=== PATIENT | female | born 1970 | race Caucasian/White ===

== ENCOUNTER → 2016-05-28 | Outpatient (REF) | payer OTHER | LOC: M LAB REF 16:21 | PROVIDERS: ATTEND Nurse Practitioner Family | DX: L81.8 Other specified disorders of pigmentation (principal) ==

== ENCOUNTER → 2018-08-23 | Outpatient (CLI) | payer BC, OTHER ==
--- NOTE | 2018-08-23 17:48 | REP ---
REASON: Chronic cough. PRIORS: None. FINDINGS: The superior mediastinal structures are midline. The cardiac silhouette is unremarkable in size, shape, and position. The diaphragmatic surfaces of the lungs are regular, and the costophrenic angles are clear. The pulmonary fontaine are clear. The imaged osseous structures are intact. IMPRESSION: There is no acute cardiopulmonary disease. Electronically Signed by Jose Roberto Glover DO 08/24/2018 11:55 A
== END ==
LOC: M WUC 14:30
PROVIDERS: ATTEND Internal Medicine
DX: R05 Cough (principal)

== ENCOUNTER → 2018-11-15 | Outpatient (REF) | payer OTHER ==
[2018-11-15 16:32] LABS: HEMOGLOBIN 12.7 g/dl (12.0-15.5); MEAN CORPUSCULAR HEMOGLOBIN 28.8 pg (27.0-33.0); MEAN CORPUSCULAR HGB CONC 32.6 g/dl (32.0-36.5); MEAN CORPUSCULAR VOLUME 88.4 fl (80.0-96.0); PLATELET COUNT, AUTOMATED 291 10^3/uL (150-450); RED BLOOD COUNT 4.41 10^6/uL (4.00-5.40); WHITE BLOOD COUNT 8.8 10^3/uL (4.0-10.0)
[2018-11-15 16:38] LABS: ALBUMIN 3.7 GM/DL (3.2-5.2); ALT/SGPT 23 U/L (12-78); BILIRUBIN,TOTAL 0.3 MG/DL (0.2-1.0); BLOOD UREA NITROGEN 7 MG/DL (7-18); CALCIUM LEVEL 8.9 MG/DL (8.5-10.1); CARBON DIOXIDE LEVEL 28 MEQ/L (21-32); CHLORIDE LEVEL 105 MEQ/L (98-107); CHOLESTEROL LEVEL 179 MG/DL (<200); CHOLESTEROL RISK RATIO 4.365 (<5); CREATININE FOR GFR 0.68 MG/DL (0.55-1.30); GLOMERULAR FILTRATION RATE > 60.0 (>58); GLUCOSE, FASTING 83 MG/DL (70-100); HDL CHOLESTEROL 41 MG/DL (>40); LDL CHOLESTEROL 86 MG/DL (<100); NON-HDL-C 138 MG/DL; POTASSIUM SERUM 4.2 MEQ/L (3.5-5.1); SODIUM LEVEL 138 MEQ/L (136-145); TOTAL PROTEIN 7.3 GM/DL (6.4-8.2); TRIGLYCERIDES LEVEL 259 MG/DL (<150)
[2018-11-15 18:17] LABS: HEMOGLOBIN A1c 5.6 %
== END ==
LOC: M SFHCCLAY 10:29
PROVIDERS: ATTEND Nurse Practitioner Family
DX: K21.9 Gastro-esophageal reflux disease without esophagitis (principal); I10 Essential (primary) hypertension; E66.9 Obesity, unspecified; E78.5 Hyperlipidemia, unspecified; E55.9 Vitamin D deficiency, unspecified

== ENCOUNTER → 2019-05-29 | Outpatient (REF) | payer OTHER ==
[2019-05-29 12:50] LABS: CHOLESTEROL RISK RATIO 5.843 (<5)
[2019-05-29 12:57] LABS: TOTAL 25(OH) VITAMIN D 33.4 NG/ML (30.0-100.0)
== END ==
LOC: M SFHCCLAY 07:57
PROVIDERS: ATTEND Nurse Practitioner Family
DX: E78.5 Hyperlipidemia, unspecified (principal); E55.9 Vitamin D deficiency, unspecified

== ENCOUNTER → 2019-05-30 | Outpatient (REF) | payer OTHER | LOC: M SFHCCLAY 11:35 | PROVIDERS: ATTEND Nurse Practitioner Family | DX: Z12.4 Encounter for screening for malignant neoplasm of cervix (principal) ==

== ENCOUNTER → 2019-10-30 | Outpatient (REF) | payer OTHER ==
[2019-11-01 20:28] LABS: ANA (HEP2) Negative (.); Lyme Disease IgG/IgM Antibodie <0.91 ISR (0.00-0.90); Lyme Disease IgM Ab Quantitati <0.80 index (0.00-0.79)
== END ==
LOC: M SFHCCLAY 11:56
PROVIDERS: ATTEND Nurse Practitioner Family
DX: M25.50 Pain in unspecified joint (principal)

== ENCOUNTER → 2020-02-13 | Outpatient (REF) | payer OTHER ==
[2020-02-13 13:46] LABS: HEMATOCRIT 36.3 % (36.0-47.0); HEMOGLOBIN 11.3 g/dl (12.0-15.5); MEAN CORPUSCULAR HEMOGLOBIN 27.6 pg (27.0-33.0); MEAN CORPUSCULAR HGB CONC 31.1 g/dl (32.0-36.5); MEAN CORPUSCULAR VOLUME 88.5 fl (80.0-96.0); PLATELET COUNT, AUTOMATED 306 10^3/uL (150-450); WHITE BLOOD COUNT 7.4 10^3/uL (4.0-10.0)
[2020-02-13 14:11] LABS: HEMOGLOBIN A1c 5.9 %
[2020-02-13 14:16] LABS: ALBUMIN 3.4 GM/DL (3.2-5.2); ALT/SGPT 23 U/L (12-78); BILIRUBIN,TOTAL 0.2 MG/DL (0.2-1.0); BLOOD UREA NITROGEN 9 MG/DL (7-18); CALCIUM LEVEL 8.9 MG/DL (8.5-10.1); CARBON DIOXIDE LEVEL 28 MEQ/L (21-32); CHLORIDE LEVEL 103 MEQ/L (98-107); CHOLESTEROL LEVEL 207 MG/DL (<200); CREATININE FOR GFR 0.65 MG/DL (0.55-1.30); FREE THYROXINE INDEX 2.2 % (1.3-4.8); GLOMERULAR FILTRATION RATE > 60.0 (>58); GLUCOSE, FASTING 105 MG/DL (70-100); HDL CHOLESTEROL 36 MG/DL (>40); LDL CHOLESTEROL 129 MG/DL (<100); NON-HDL-C 171 MG/DL; POTASSIUM SERUM 4.1 MEQ/L (3.5-5.1); SODIUM LEVEL 138 MEQ/L (136-145); T UPTAKE 28 % (30-39); TOTAL 25(OH) VITAMIN D 32.9 NG/ML (30.0-100.0); TOTAL PROTEIN 6.5 GM/DL (6.4-8.2); TRIGLYCERIDES LEVEL 211 MG/DL (<150)
== END ==
LOC: M SFHCCLAY 07:27
PROVIDERS: ATTEND Nurse Practitioner Family
DX: K21.9 Gastro-esophageal reflux disease without esophagitis (principal); I10 Essential (primary) hypertension; Z83.3 Family history of diabetes mellitus; E78.5 Hyperlipidemia, unspecified; E66.9 Obesity, unspecified; E55.9 Vitamin D deficiency, unspecified

== ENCOUNTER 2020-05-27 16:01 | Emergency (ER) | payer BC, OTHER ==
[~2020-05-27] VITALS: Ht 167.6 cm; Wt 110.7 kg
[2020-05-27] MEDS ORDERED: CITA20TA7 (16:22)
[2020-05-27] MEDS ORDERED: LOSA50TA88 (16:22)
[2020-05-27] MEDS ORDERED: ROSU10TA6 (16:22)
[2020-05-27] MEDS ORDERED: VITA50005 (16:22)
[2020-05-27] MEDS ORDERED: FAMO20TA5 (16:22)
[2020-05-27] MEDS ORDERED: NS 1,000 ML IV ONE (17:00)
[2020-05-27] MEDS ORDERED: ACETAMINOPHEN 325 MG TAB PO ONE (17:00)
[2020-05-27 17:23] LABS: BASO % 0.3 % (0.0-1.0); EOS # 0.1 10^3/uL (0.0-0.5); EOS % 0.8 % (0.0-3.0); HEMATOCRIT 37.7 % (36.0-47.0); LYMPH % 19.8 % (24.0-44.0); MEAN CORPUSCULAR HGB CONC 31.8 g/dl (32.0-36.5); MEAN CORPUSCULAR VOLUME 88.1 fl (80.0-96.0); MONO # 0.4 10^3/uL (0.0-0.8); MONO % 4.2 % (0.0-5.0); NEUTROPHILS # 7.3 10^3/uL (1.5-8.5); NEUTROPHILS % 74.3 % (36.0-66.0); PLATELET COUNT, AUTOMATED 312 10^3/uL (150-450); RED BLOOD COUNT 4.28 10^6/uL (4.00-5.40); WHITE BLOOD COUNT 9.8 10^3/uL (4.0-10.0)
[2020-05-27 17:50] LABS: HCG, SERUM QUALITATIVE NEGATIVE (NEGATIVE)
[2020-05-27 17:53] LABS: ALBUMIN 3.8 GM/DL (3.2-5.2); ALT/SGPT 25 U/L (12-78); BILIRUBIN,DIRECT 0.1 MG/DL (0.0-0.2); BILIRUBIN,TOTAL 0.1 MG/DL (0.2-1.0); BLOOD UREA NITROGEN 8 MG/DL (7-18); CALCIUM LEVEL 9.6 MG/DL (8.5-10.1); CARBON DIOXIDE LEVEL 28 MEQ/L (21-32); CHLORIDE LEVEL 104 MEQ/L (98-107); CREATININE FOR GFR 0.71 MG/DL (0.55-1.30); GLOMERULAR FILTRATION RATE > 60.0 (>58); GLUCOSE, FASTING 105 MG/DL (70-100); LIPASE 168 U/L (73-393); POTASSIUM SERUM 3.8 MEQ/L (3.5-5.1); SODIUM LEVEL 139 MEQ/L (136-145); TOTAL PROTEIN 7.3 GM/DL (6.4-8.2)
[2020-05-27] MEDS ORDERED: ISOVUE-370 76% 100ML VIAL As Ordered ONE (18:01)
--- NOTE | 2020-05-27 19:06 | REPVR ---
PROCEDURE INFORMATION: Exam: CT Abdomen And Pelvis With Contrast Exam date and time: 05/27/2020 6:07 PM Age: 49 years old Clinical indication: Abdominal pain; Additional info: Right sided abdominal pain TECHNIQUE: Imaging protocol: Computed tomography of the abdomen and pelvis with intravenous contrast. Radiation optimization: All CT scans at this facility use at least one of these dose optimization techniques: automated exposure control; mA and/or kV adjustment per patient size (includes targeted exams where dose is matched to clinical indication); or iterative reconstruction. Contrast material: ISOVUE 370; Contrast volume: 100 ml; Contrast route: INTRAVENOUS (IV); COMPARISON: No relevant prior studies available. FINDINGS: Lungs: Clear appearing lung bases. Heart: The heart is normal in size and there is no pericardial effusion. Liver: Normal. No mass. Gallbladder and bile ducts: There are approximately 15 small round calcified gallstones in the dependent portion the gallbladder measuring 3 mm each. Pancreas: Normal pancreas. Spleen: Normal spleen. Adrenal glands: Normal adrenal glands. Kidneys and ureters: There is enhancement of both kidneys. Stomach and bowel: There are small diverticula of the left colon but no evidence of diverticulitis. Appendix: Normal appearing appendix. Intraperitoneal space: There is no evidence of mesenteric mass. There is no evidence of free fluid in the abdomen or pelvis. There is no evidence of pneumoperitoneum. Vasculature: There is opacification of the SMV and the SMA. Lymph nodes: Unremarkable. No enlarged lymph nodes. Urinary bladder: Normal urinary bladder. Reproductive: There is a prominent fibroid along the anterior aspect of the uterine fundus. There are follicular cysts of both ovaries. Bones/joints: There is a small posterior disc protrusion with marginal calcification L3-L4. There is a large posterior disc protrusion with marginal calcification L4-L5 and L5-S1. Soft tissues: Unremarkable. IMPRESSION: Large fibroid along the anterior superior aspect of the uterus which is deviated towards the right. Electronically signed by: Danyel Dubon On 05/27/2020 19:06:29 PM
[2020-05-27 20:00] VITALS: BP 144/91
== END 2020-05-27 20:07 | disposition home or self-care (01) ==
LOC: M ED 16:01
DX: D25.9 Leiomyoma of uterus, unspecified (principal); K80.20 Calculus of gallbladder without cholecystitis without obstruction; K57.00 Diverticulitis of small intestine with perforation and abscess without bleeding; I10 Essential (primary) hypertension; Z79.899 Other long term (current) drug therapy; Z86.73 Personal history of transient ischemic attack (TIA), and cerebral infarction without residual deficits
CPT/HCPCS: 74177; 80048; 80076; 81001; 83605; 83690; 84703; 85025; 96360; 96361; 99284; Q9967

== ENCOUNTER 2020-05-30 11:22 | Emergency (ER) | payer BC, OTHER ==
[~2020-05-30] VITALS: Ht 167.6 cm; Wt 108.6 kg
[~2020-05-30 11:22] MED LIST: CITA20TA7; FAMO20TA5; LOSA50TA88; ROSU10TA6; VITA50005
--- OUTSIDE RECORDS SUMMARY | 2020-05-30 11:28 | CCD ---
Author Author [facility] ems Organization [facility] ems Address Unknown Phone Unavailable Care Team Providers Care Emergency Services Professional Name Role Phone Dias Marimar Unavailable PROBLEMS Type Condition ICD9-CM Code RSK98-VH Code Onset Dates Condition S tatus SNOMED Code Notes Problem Depression, unspecified depression type F32.9 Active 40867572 Problem Hyperlipidemia, unspecified hyperlipidemia type E7 8.5 Active 92424297 Problem Gastroesophageal reflux disease, esophagitis pre sence not specified K21.9 Active 915681071 Problem Hypertension, unspecified type I10 Active 5 1386886 Problem Sinusitis, unspecified chronicity, unspecified location J32.9 Active 99586449 Problem Anxiety F41.9 Active 07720748 Problem Vitamin D deficiency E55.9 Active 93446412 Problem Pain in right hip M25.551 Active 12449935 Problem Obesity, unspecified classif ication, unspecified obesity type, unspecified whether serious comorbidity present E66.9 Active 389784302 ALLERGIES Allergen (clinical drug ingredient) Drug/Non Drug Allergy do cumented on EMR Reaction Allergy Type Onset Date Status simvastatin Simvastatin([facility] Code:[address]-88) JOINT PAIN Drug Aller gy Active Melatonin Nausea/Vomiting/passed out Non Drug Allergy Active ENCOUNTERS from 1970 to 2020-02-29 Encounter Location Date Provider Diagnosis [facility] Siddharth Bharat [place] [address] 13 Jan Marimar Dias Hypertension, unspecified type I10 ; Hyp erlipidemia, unspecified hyperlipidemia type E78.5 ; Gastroesophageal reflux disease, esophagitis presence not specified K21.9 ; Vitamin D deficiency E55.9 ; Arthralgia, unspecified joint M25.50 and Herpes simplex B00.9 IMMUNIZATIONS Vaccine Route Administration Date Status Influenza (Pharmacy Given) Unknown Jan 24, 2020 Admin istered SOCIAL HISTORY Tobacco Use: Social History Observation Description Date Details (start date - stop date) Never Smoker Sex Assigned At : Social History Observation Description Sex Assigned At Unknown Audit Question Answer Notes Total Score: 2 Interpretation: Alcohol Education Language: Question Answer Notes Languages spoken: Yakut Christian: Question Answer Notes Christian No synagogue beliefs that would impact health care. Drug and Alcohol Question Answer Notes Total Score: 0 Interpretation: No problems reported Alcohol Screening: Question Answer Notes Did you have a drink containing alcohol in the past year? Ye s Points 1 Interpretation Negative How often did you have six or more drinks on one occas ion in the past year? Never (0 points) How many drinks did you have on a typica l day when you were drinking in the past year? 1 or 2 (0 points) How often did you have a drink containing alcohol in t he past year? Monthly or less (1 point) Tobacco Use: Question Answer Notes Are you a: never smoker REASON FOR REFERRAL No Information VITAL SIGNS Weight 249 lbs Jan, Height 5'6" in Jan, BMI 40.19 kg/m2 Jan, Heart Rate 84 /min Jan, Respiratory Rate 16 /min Jan, Temperature 97.4T degrees Fahrenheit Jan, Oximetry 98%RA Jan, Blood pressure systolic 143 mm Hg Jan, Blood pressure diastolic 89 mm Hg Jan, MEDICATIONS Medication SIG (Take, Route, Frequency, Duration) Start Date En d Date Status Valtrex 1 GM 2 tablet Orally bid FOR 1 DAY,PRN Jan, Active Losartan Potassium 50 MG 1 tablet Orally Once a day for 90 days Active Drisdol 47769 UNIT 1 capsule Orally weekly for 90 day(s) Active Famotidine 20 MG 1 tab Orally bid Active Crestor 10 MG 1 tablet Orally Once a day for 90 day(s) Jan, Active Tessalon Perles 100 MG 1-2 capsule as needed Orally Three ti mes a day Jul, Active Citalopram Hydrobromide 20 MG 1 tablet Orally Once a day Active PROCEDURES No Information RESULTS No Results REASON FOR VISIT 3 mo followup MEDICAL (GENERAL) HISTORY Type Description Date Medical History Hypertension Medical History Hyperlipidemia Medical History GERD Medical History Depression Medical History Anxiety Medical History Right Hip Pain/Sciatica Medical History Vitamin D Deficiency Medical History Obesity Surgical History No know Surgical history Hospitalization History 2 childbirths Goals Section No Information Health Concerns No Information MEDICAL EQUIPMENT No Information MENTAL STATUS No Information FUNCTIONAL STATUS No Information ASSESSMENTS Encounter Date Diagnosis Notes Jan, Arthralgia, unspecified joint (ICD-10 - M25.50) Jan, Vitamin D deficiency (ICD-10 - E55.9) Jan, Hypertension, unspecified type (ICD-10 - I10) Jan, Herpes simplex (ICD-10 - B00.9) Jan, Gastroesophageal reflux dise ase, esophagitis presence not specified (ICD-10 - K21.9) Jan, Hyperlipidemia, unspecified hyperlipidem ia type (ICD-10 - E78.5) PLAN OF TREATMENT Medication Medication Name Sig Start Date Stop Date Valtrex 1 GM 2 tablet Orally bid FOR 1 DAY,PRN Jan, Crestor 10 MG 1 tablet Orally Once a day for 90 day(s) Jan, Tessalon Perles 100 MG 1-2 capsule as needed Orally Three ti mes a day Jul, Famotidine 20 MG 1 tab Orally bid Losartan Potassium 50 MG 1 tablet Orally Once a day for 90 days Drisdol 96296 UNIT 1 capsule Orally weekly for 90 day(s) Citalopram Hydrobromide 20 MG 1 tablet Orally Once a day Future Test Test Name Order Date LIVER PROFILE [id number] LIPID PANEL (CARDIAC RISK) [id number] Next Appt Details 3 Months, LAB BEFORE Reason: Provider Name:Marimar Dias, 2020-05-16 04:00:00 PM, [address] [place] [address], [id number], Insurance Providers Payer Name Payer Address Payer Phone Insured Name Patient Relati onship to Insured Coverage Start Date Coverage End Date [facility] [address] [facility] [id number] [employer] [employer]UMMON[employer] [id number]
--- OUTSIDE RECORDS SUMMARY | 2020-05-30 11:28 | CCD ---
Author Author [facility] ems Organization [facility] ems Address Unknown Phone Unavailable Care Team Providers Care [employer] Products Sales Representative Name Role Phone Vida Forrest Unavailable PROBLEMS Type Condition ICD9-CM Code [id number] Code Onset Dates Condition S tatus SNOMED Code Notes Problem Depression, unspecified depression type F32.9 Active 45330090 Problem Hyperlipidemia, unspecified hyperlipidemia type E7 8.5 Active 34416757 Problem Gastroesophageal reflux disease, esophagitis pre sence not specified K21.9 Active 393169328 Problem Hypertension, unspecified type I10 Active 5 8181467 Problem Sinusitis, unspecified chronicity, unspecified location J32.9 Active 36843539 Problem Anxiety F41.9 Active 42071779 Problem Vitamin D deficiency E55.9 Active 58107061 Problem Pain in right hip M25.551 Active 51776002 Problem Obesity, unspecified classif ication, unspecified obesity type, unspecified whether serious comorbidity present E66.9 Active 582627125 ALLERGIES Allergen (clinical drug ingredient) Drug/Non Drug Allergy do cumented on EMR Reaction Allergy Type Onset Date Status simvastatin Simvastatin([facility] Code:[address]-62) JOINT PAIN Drug Aller gy Active Melatonin Nausea/Vomiting/passed out Non Drug Allergy Active ENCOUNTERS from 1970 to 2020-05-27 Encounter Location Date Provider Diagnosis [facility] Nolvia Bhar[place] [address] May Vida Forrest IMMUNIZATIONS Vaccine Route Administration Date Status Influenza (Pharmacy Given) Unknown Jan 24, 2020 Admin istered SOCIAL HISTORY Tobacco Use: Social History Observation Description Date Details (start date - stop date) Never Smoker Sex Assigned At : Social History Observation Description Sex Assigned At Unknown Audit Question Answer Notes Total Score: 2 Interpretation: Alcohol Education Language: Question Answer Notes Languages spoken: Nigerien Congregation: Question Answer Notes Congregation No bahai beliefs that would impact health care. Drug [...] REASON FOR REFERRAL No Information VITAL SIGNS No information MEDICATIONS Medication SIG (Take, Route, Frequency, Duration) Notes Start Da te End Date Status Citalopram Hydrobromide 20 MG 1 tablet Orally Once a day for 90 Active Tessalon Perles 100 MG 1-2 capsule as needed Orally Three times a day Jul, Active Drisdol 61725 UNIT 1 capsule Orally weekly for 90 Active Valtrex 1 GM 2 tablet Orally bid FOR 1 DAY,PRN Jan, 0 Active Crestor 10 MG 1 tablet Orally Once a day for 90 day(s) Jan, Active Famotidine 20 MG 1 tab Orally bid Ac tive Losartan Potassium 50 MG 1 tablet Orally Once a day for 90 days Active PROCEDURES No Information RESULTS No Results REASON FOR VISIT abd pain MEDICAL (GENERAL) HISTORY Type Description Date Medical [...] No Information FUNCTIONAL STATUS No Information ASSESSMENTS No Information PLAN OF TREATMENT Medication Medication Name Sig Start Date Stop Date Citalopram Hydrobromide 20 MG 1 tablet Orally Once a day for 90 Crestor 10 MG 1 tablet Orally Once a day for 90 day(s) Jan, Famotidine 20 MG 1 tab Orally bid Valtrex 1 GM 2 tablet Orally bid FOR 1 DAY,PRN Jan, Tessalon Perles 100 MG 1-2 capsule as needed Orally Three ti mes a day Jul, Drisdol 74023 UNIT 1 capsule Orally weekly for 90 Losartan Potassium 50 MG 1 tablet Orally Once a day for 90 days Next Appt Details Provider Name:Mague Cuevas, 2020-06-25 01:00:00 PM, [address] [place], [address], Insurance Providers Payer Name Payer Address Payer Phone Insured Name Patient Relati onship to Insured Coverage Start Date Coverage End Date [facility] [address] [facility] [id number] [employer]LLY DRUMMOND [id number]
--- OUTSIDE RECORDS SUMMARY | 2020-05-30 11:28 | CCD ---
Author Author [facility] Organization [facility] Address Unknown Phone Unavailable Care Team Providers Care Counter Roller Name Role Phone FAITH MOORE MD Unavailable Unavailable FAITH MOORE MD Unavailable Unavailable FAITH MOORE MD Unavailable Unavailable FAITH MOORE MD Unavailable Unavailable FAITH MOORE MD Unavailable Unavailable FAITH MOORE MD Unavailable Unavailable FAITH MOORE MD Unavailable Unavailable FAITH MOORE MD Unavailable Unavailable FAITH MOORE MD Unavailable Unavailable FAITH MOORE MD Unavailable Unavailable FAITH MOORE MD Unavailable Unavailable FAITH MOORE MD Unavailable Unavailable FAITH MOORE MD Unavailable Unavailable FAITH MOORE MD Unavailable Unavailable FAITH MOORE MD Unavailable Unavailable FAITH MOORE MD Unavailable Unavailable FAITH MOORE MD Unavailable Unavailable FAITH MOORE MD Unavailable Unavailable FAITH MOORE MD Unavailable Unavailable FAITH MOORE MD Unavailable Unavailable FAITH MOORE MD Unavailable Unavailable FAITH MOORE MD Unavailable Unavailable FAITH MOORE MD Unavailable Unavailable FAITH MOORE MD Unavailable Unavailable FAITH MOORE MD Unavailable Unavailable FAITH MOORE MD Unavailable Unavailable FAITH MOORE MD Unavailable Unavailable FAITH MOORE MD Unavailable Unavailable FAITH MOORE MD Unavailable Unavailable FAITH MOORE MD Unavailable Unavailable FAITH MOORE MD Unavailable Unavailable FAITH MOORE MD Unavailable Unavailable FAITH MOORE MD Unavailable Unavailable FAITH MOORE MD Unavailable Unavailable FAITH MOORE MD Unavailable Unavailable FAITH MOORE MD Unavailable Unavailable FAITH MOORE MD Unavailable Unavailable FAITH MOORE MD Unavailable Unavailable FAITH MOORE MD Unavailable Unavailable FAITH MOORE MD Unavailable Unavailable KATELYNN, L DION PA Unavailable Unavailable KATELYNN, L DION PA Unavailable Unavailable KATELYNN, L DION PA Unavailable Unavailable KATELYNN, L DION PA Unavailable Unavailable KATELYNN, L DION PA Unavailable Unavailable KATELYNN, L DION PA Unavailable Unavailable KATELYNN, L DION PA Unavailable Unavailable KATELYNN, L DION PA Unavailable Unavailable KATELYNN, L DION PA Unavailable Unavailable KATELYNN, L DION PA Unavailable Unavailable KATELYNN, L DION PA Unavailable Unavailable KATELYNN, L DION PA Unavailable Unavailable KATELYNN, L DION PA Unavailable Unavailable KATELYNN, L DION PA Unavailable Unavailable KATELYNN, L DION PA Unavailable Unavailable KATELYNN, L DION PA Unavailable Unavailable KATELYNN, L DION PA Unavailable Unavailable KATELYNN, L DION PA Unavailable Unavailable KATELYNN, L DION PA Unavailable Unavailable Tasha NAJERA MD Unavailable Unavailable Tasha NAJERA MD Unavailable Unavailable Tasha NAJERA MD Unavailable Unavailable Tasha NAJERA MD Unavailable Unavailable Tasha NAJERA MD Unavailable Unavailable Tasha NAJERA MD Unavailable Unavailable Tasha NAJERA MD Unavailable Unavailable Tasha NAJERA MD Unavailable Unavailable Alberry, D Vida BUFFER NICKEL Unavailable Unavailable Alberry, D Vida BUFFER NICKEL Unavailable Unavailable Alberry, D Vida BUFFER NICKEL Unavailable Unavailable Alberry, D Vida BUFFER NICKEL Unavailable Unavailable Alberry, D Vida BUFFER NICKEL Unavailable Unavailable Alberry, D Vida BUFFER NICKEL Unavailable Unavailable Alberry, D Vida BUFFER NICKEL Unavailable Unavailable Alberry, D Vida BUFFER NICKEL Unavailable Unavailable Alberry, D Vida BUFFER NICKEL Unavailable Unavailable Alberry, D Vida BUFFER NICKEL Unavailable Unavailable Alberry, D Vida BUFFER NICKEL Unavailable Unavailable Alberry, D Vida BUFFER NICKEL Unavailable Unavailable Alberry, D Vida BUFFER NICKEL Unavailable Unavailable Alberry, D Vida BUFFER NICKEL Unavailable Unavailable Alberry, D Vida BUFFER NICKEL Unavailable Unavailable Alberry, D Vida BUFFER NICKEL Unavailable Unavailable Alberry, D Vida BUFFER NICKEL Unavailable Unavailable Alberry, D Vida BUFFER NICKEL Unavailable Unavailable Alberry, D Vida BUFFER NICKEL Unavailable Unavailable Alberry, D Vida BUFFER NICKEL Unavailable Unavailable Alberry, D Vida BUFFER NICKEL Unavailable Unavailable Alberry, D Vida BUFFER NICKEL Unavailable Unavailable Alberry, D Vida BUFFER NICKEL Unavailable Unavailable Alberry, D Vida BUFFER NICKEL Unavailable Unavailable Alberry, D Vida BUFFER NICKEL Unavailable Unavailable Alberry, D Vida BUFFER NICKEL Unavailable Unavailable Alberry, D Vida BUFFER NICKEL Unavailable Unavailable Alberry, D Vida BUFFER NICKEL Unavailable Unavailable Alberry, D Vida BUFFER NICKEL Unavailable Unavailable Alberry, D Vida BUFFER NICKEL Unavailable Unavailable Alberry, D Vida BUFFER NICKEL Unavailable Unavailable Alberry, D Vida BUFFER NICKEL Unavailable Unavailable Alberry, D Viad BUFFER NICKEL Unavailable Unavailable Alberry, D Vida BUFFER NICKEL Unavailable Unavailable Alberry, D Vida BUFFER NICKEL Unavailable Unavailable Alberry, D Vida BUFFER NICKEL Unavailable Unavailable Alberry, D Vida BUFFER NICKEL Unavailable Unavailable Alberry, D Vida BUFFER NICKEL Unavailable Unavailable Alberry, D Vida BUFFER NICKEL Unavailable Unavailable Alberry, D Vida BUFFER NICKEL Unavailable Unavailable Alberry, D Vida BUFFER NICKEL Unavailable Unavailable Alberry, D Ivda BUFFER NICKEL Unavailable Unavailable Alberry, D Vida BUFFER NICKEL Unavailable Unavailable Alberry, D Vida BUFFER NICKEL Unavailable Unavailable Alberry, D Vida BUFFER NICKEL Unavailable Unavailable Alberry, D Vida BUFFER NICKEL Unavailable Unavailable Alberry, D Vida BUFFER NICKEL Unavailable Unavailable Alberry, D Vida BUFFER NICKEL Unavailable Unavailable Salvatore, Fabienne BUFFER NICKEL Unavailable Unavailable Salvatore, Fabienne BUFFER NICKEL Unavailable Unavailable Salvatore, Fabienne BUFFER NICKEL Unavailable Unavailable Salvatore, Fabienne BUFFER NICKEL Unavailable Unavailable Salvatore, Fabienne BUFFER NICKEL Unavailable Unavailable Salvatore, Fabienne BUFFER NICKEL Unavailable Unavailable Salvatore, Fabienne BUFFER NICKEL Unavailable Unavailable Salvatore, Fabienne BUFFER NICKEL Unavailable Unavailable Salvatore, Fabienne BUFFER NICKEL Unavailable Unavailable Salvatore, Fabienne BUFFER NICKEL Unavailable Unavailable Salvatore, Fabienne BUFFER NICKEL Unavailable Unavailable Salvatore, Fabienne BUFFER NICKEL Unavailable Unavailable Salvatore, Fabienne BUFFER NICKEL Unavailable Unavailable Salvatore, Fabienne BUFFER NICKEL Unavailable Unavailable Salvatore, Fabienne BUFFER NICKEL Unavailable Unavailable Salvatore, Fabienne BUFFER NICKEL Unavailable Unavailable Salvatore, Fabienne BUFFER NICKEL Unavailable Unavailable Salvatore, Fabienne BUFFER NICKEL Unavailable Unavailable Salvatore, Fabienne BUFFER NICKEL Unavailable Unavailable Salvatore, Fabienne BUFFER NICKEL Unavailable Unavailable Salvatore, Fabienne BUFFER NICKEL Unavailable Unavailable Salvatore, Fabienne BUFFER NICKEL Unavailable Unavailable Salvatore, Fabienne BUFFER NICKEL Unavailable Unavailable Salvatore, Fabienne BUFFER NICKEL Unavailable Unavailable Salvatore, Fabienne BUFFER NICKEL Unavailable Unavailable Salvatore, Fabienne BUFFER NICKEL Unavailable Unavailable Salvatore, Fabienne BUFFER NICKEL Unavailable Unavailable Salvatore, Fabienne BUFFER NICKEL Unavailable Unavailable Salvatore, Fabienne BUFFER NICKEL Unavailable Unavailable Salvatore, Fabienne BUFFER NICKEL Unavailable Unavailable Salvatore, Fabienne BUFFER NICKEL Unavailable Unavailable Salvatore, Fabienne BUFFER NICKEL Unavailable Unavailable Salvatore, Fabienne BUFFER NICKEL Unavailable Unavailable Salvatore, Fabienne BUFFER NICKEL Unavailable Unavailable Salvatore, Fabienne BUFFER NICKEL Unavailable Unavailable Salvatore, Fabienne BUFFER NICKEL Unavailable Unavailable Salvatore, Fabienne BUFFER NICKEL Unavailable Unavailable Salvatore, Fabienne BUFFER NICKEL Unavailable Unavailable Salvatore, Fabienne BUFFER NICKEL Unavailable Unavailable Salvatore, Fabienne BUFFER NICKEL Unavailable Unavailable Salvatore, Fabienne BUFFER NICKEL Unavailable Unavailable Salvatore, Fabienne BUFFER NICKEL Unavailable Unavailable Salvatore, Fabienne BUFFER NICKEL Unavailable Unavailable Salvatore, Fabienne BUFFER NICKEL Unavailable Unavailable Salvatore, Fabienne BUFFER NICKEL Unavailable Unavailable Salvatore, Fabienne BUFFER NICKEL Unavailable Unavailable Salvatore, Fabienne BUFFER NICKEL Unavailable Unavailable Salvatore, Fabienne BUFFER NICKEL Unavailable Unavailable Salvatore, Fabienne BUFFER NICKEL Unavailable Unavailable Salvatore, Fabienne BUFFER NICKEL Unavailable Unavailable Salvatore, Fabienne BUFFER NICKEL Unavailable Unavailable Salvatore, Fabienne BUFFER NICKEL Unavailable Unavailable Salvatore, Fabienne BUFFER NICKEL Unavailable Unavailable WILLAM, MARIMAR Unavailable Unavailable Naima Coates MD Unavailable Unavailable Naima Coates MD Unavailable Unavailable Naima Coates MD Unavailable Unavailable Naima Coates MD Unavailable Unavailable Naima Coates MD Unavailable Unavailable Naima Coates MD Unavailable Unavailable Naima Coates MD Unavailable Unavailable Naima Coates MD Unavailable Unavailable Naima Coates MD Unavailable Unavailable Naima Coates MD Unavailable Unavailable Naima Coates MD Unavailable Unavailable Naima Coates MD Unavailable Unavailable Dombek-Lang, V Tamiko MD Unavailable Unavailable Dombek-Lang, V Tamiko MD Unavailable Unavailable Dombek-Lang, V Tamiko MD Unavailable Unavailable Dombek-Lang, V Tamiko MD Unavailable Unavailable Dombek-Lang, V Tamiko MD Unavailable Unavailable Dombek-Lang, V Tamiko MD Unavailable Unavailable Dombek-Lang, V Tamiko MD Unavailable Unavailable Dombek-Lang, V Tamiko MD Unavailable Unavailable Dombek-Lang, V Tamiko MD Unavailable Unavailable Dombek-Lang, V Tamiko MD Unavailable Unavailable Dombek-Lang, V Tamiko MD Unavailable Unavailable Dombek-Lang, V Tamiko MD Unavailable Unavailable Dombek-Lang, V Tamiko MD Unavailable Unavailable Dombek-Lang, V Tamiko MD Unavailable Unavailable Dombek-Lang, V Tamiko MD Unavailable Unavailable Dombek-Lang, V Tamiko MD Unavailable Unavailable Dombek-Lang, V Tamiko MD Unavailable Unavailable Dombek-Lang, V Tamiko MD Unavailable Unavailable Dombek-Lang, V Tamiko MD Unavailable Unavailable Dombek-Lang, V Tamiko MD Unavailable Unavailable Dombek-Lang, V Tamiko MD Unavailable Unavailable Dombek-Lang, V Tamiko MD Unavailable Unavailable Dombek-Lang, V Tamiko MD Unavailable Unavailable Dombek-Lang, Naima AriasTamiko MD Unavailable Unavailable ELINA DALEY M.D. Unavailable ELINA DALEY M.D. Unavailable ELINA DALEY M.D. Unavailable Dias, Marimar BUFFER NICKEL Unavailable Unavailable Dias, Marimar BUFFER NICKEL Unavailable Unavailable Dias, Marimar BUFFER NICKEL Unavailable Unavailable Dias, Marimar BUFFER NICKEL Unavailable Unavailable Dias, Marimar BUFFER NICKEL Unavailable Unavailable Dias, Marimar BUFFER NICKEL Unavailable Unavailable Dias, Marimar BUFFER NICKEL Unavailable Unavailable Dias, Marimar BUFFER NICKEL Unavailable Unavailable Dias, Marimar BUFFER NICKEL Unavailable Unavailable Dias, Marimar BUFFER NICKEL Unavailable Unavailable Dias, Marimar BUFFER NICKEL Unavailable Unavailable Dias, Marimar BUFFER NICKEL Unavailable Unavailable Dias, Marimar BUFFER NICKEL Unavailable Unavailable Dias, Marimar BUFFER NICKEL Unavailable Unavailable Dias, Marimar BUFFER NICKEL Unavailable Unavailable Dias, Marimar BUFFER NICKEL Unavailable Unavailable Dias, Marimar BUFFER NICKEL Unavailable Unavailable Dias, Marimar BUFFER NICKEL Unavailable Unavailable Dias, Marimar BUFFER NICKEL Unavailable Unavailable Dias, Marimar BUFFER NICKEL Unavailable Unavailable Dias, Marimar BUFFER NICKEL Unavailable Unavailable Dias, Marimar BUFFER NICKEL Unavailable Unavailable Dias, Marimar BUFFER NICKEL Unavailable Unavailable Dias, Marimar BUFFER NICKEL Unavailable Unavailable Dias, Marimar BUFFER NICKEL Unavailable Unavailable Dias, Marimar BUFFER NICKEL Unavailable Unavailable Dias, Marimar BUFFER NICKEL Unavailable Unavailable Dias, Marimar BUFFER NICKEL Unavailable Unavailable Dias, Marimar BUFFER NICKEL Unavailable Unavailable Dias, Marimar BUFFER NICKEL Unavailable Unavailable Dias, Marimar BUFFER NICKEL Unavailable Unavailable Dias, Marimar BUFFER NICKEL Unavailable Unavailable Dias, Marimar BUFFER NICKEL Unavailable Unavailable Dias, Marimar BUFFER NICKEL Unavailable Unavailable Dias, Marimar BUFFER NICKEL Unavailable Unavailable Dias, Marimar BUFFER NICKEL Unavailable Unavailable Re-disclosure Warning The records that you are about to access may contain information from federally-assisted alcohol or drug abuse programs. If such information is present, then the following federally mandated warning applies: This information has been disclosed to you from records protected by federal confidentiality rules (42 CFR part 2). The federal rules prohibit you from making any further disclosure of this information unless further disclosure is expressly permitted by the written consent of the person to whom it pertains or as otherwise permitted by 42 CFR part 2. A general authorization for the release of medical or other information is NOT sufficient for this purpose. The Federal rules restrict any use of the information to criminally investigate or prosecute any alcohol or drug abuse patient.The records that you are about to access may contain highly sensitive health information, the redisclosure of which is protected by Article 27-F of the [facility] Public Health law. If you continue you may have access to information: Regarding HIV / AIDS; Provided by facilities licensed or operated by the [facility] Office of Mental Health; or Provided by the [facility] Office for People With Developmental Disabilities. If such information is present, then the following [facility] mandated warning applies: This information has been disclosed to you from confidential records which are protected by state law. State law prohibits you from making any further disclosure of this information without the specific written consent of the person to whom it pertains, or as otherwise permitted by law. Any unauthorized further disclosure in violation of state law may result in a fine or penitentiary sentence or both. A general authorization for the release of medical or other information is NOT sufficient authorization for further disc losure. Allergies and Adverse Reactions Type Description Substance Reaction Status Data Source(s ) No Known Drug Allergies No Known Drug Allergies [facility] Melatonin Melatonin Melatonin Nausea/Vomiting/passed out Active eCW1 ([facility]) Melatonin Melatonin Melatonin Nausea/Vomiting/passed out Active eCW1 ([facility]) Family History Family Member Name Family Member Gender Family Member Status Date o f Status Description Data Source(s) Unknown Unknown Problem [facility] ([facility]) Two brothers. One with Hodgkin's lymphom a, one alive and well. One sister alive and well Encounters Encounter Providers Location Date Indications Data Source(s ) Unknown [id number] [facility] [address] 05/27/2020 12:00:00 AM EST eCW1 (Critical access hospital) Outpatient Attender: ELINA DALEY M.D.Electrical Appliance Mechanic: MARIMAR RIOS 05/23/2020 04:23:02 PM EST - 05/25/2020 11:46:00 AM [facility] Patient discharged. Unknown [id number] [place] [phone] 02/23/2020 12:00:00 AM EDT eCW1 (Critical access hospital) Outpatient [address] [place] [phone] 02/13/2020 12:00:00 AM EDT eCW1 (Critical access hospital) Outpatient Attender: Vida Forrest FNPReferrer: Marimar BENNETTP 01/04/2020 03:00:00 PM [facility] Outpatient [address] [place] [phone] 11/01/2019 12:00:00 AM EDT eCW1 (Critical access hospital) Outpatient [address] [place] [phone] 10/05/2019 12:00:00 AM EDT eCW1 ([facility]) [address] [phone] 07/27/2019 12:00:00 AM EDT eCW1 (Critical access hospital) [address] [phone] 07/27/2019 12:00:00 AM EDT eCW1 (Critical access hospital) [facility] [address] [address] 05/30/2019 12:00:00 AM EST eCW1 (Critical access hospital) Outpatient Attender: Marimar Dias FNPReferrer: Marimar BENNETTP 05/09/2019 03:00:00 PM EST - 05/09/2019 03:00:00 PM EST [facility] [address] [address] 04/19/2019 12:00:00 AM EST eCW1 (Critical access hospital) Outpatient Attender: Marimar BENNETTP 04/18/2019 03:00:00 PM [facility] Emergency Attender: DION PACE PAReferrer: John BENNETTP EMERGENCY ROOM-ER 04/12/2019 02:48:00 PM EST - 04/12/2019 04:44:00 PM [facility] Patient discharged. [address] [address] 04/12/2019 12:00:00 AM EST eCW1 (Critical access hospital) Outpatient Attender: Fabienne BENNETTP 03:00:00 PM EDT - 01/27/2018 03:00:00 PM [facility] Outpatient Attender: Tamiko Coates MD 03/19/2016 09:1 7:00 AM [facility] Outpatient Attender: JACQUELINE MOORE MD 03/24/2014 09:01:00 [facility] Emergency Attender: DONG NAJERA MD 01/02 09:21:00 AM EDT - 01/28/2014 10:23:00 AM [facility] Immunizations Vaccine Date Status Description Data Source(s) IIV3. This is one of two codes replacing CVX 15, which is being retired. 01/24/2020 03:32:00 PM EDT completed eCW1 ([facility]) IIV3. This is one of two codes replacing CVX 15, which is being retired. 01/24/2020 03:32:00 PM EDT completed eCW1 ([facility]) IIV3. This is one of two codes replacing CVX 15, which is being retired. 01/24/2020 03:32:00 PM EDT completed eCW1 ([facility]) INFLUENZA VIRUS VACCINE QUADRIVAL (6 MOS AND UP)/PF 01/23/2020 12:00:00 AM EDT completed [facility] Medications Medication Brand Name Start Date Product Form Dose Route Admi nistrative Instructions Pharmacy Instructions Status Indications Reaction Description Data Source(s) Citalopram 20 MG Oral Tablet CITALOPRAM HYDROBROMIDE 03/20/2020 12:00:00 AM EST tablet 90 TAKE ONE TABLET BY MOUTH EVERY D AY TAKE ONE TABLET BY MOUTH EVERY DAY SOLD: 03/20/2020 [facility] 50 mg 02/23/2020 12:00:00 AM EDT tablet 90 TAKE ONE TABLET BY MOUTH EVERY DAY TAKE ONE TABLET BY MOUTH EVERY DAY SOLD: 02/23/2020 [facility] 50 mg 02/23/2020 12:00:00 AM EDT tablet 90 TAKE ONE TABLET BY MOUTH EVERY DAY TAKE ONE TABLET BY MOUTH EVERY DAY SOLD: 05/27/2020 [facility] 10 mg 02/13/2020 12:00:00 AM EDT tablet 90 TAKE ONE TABLET BY MOUTH DAILY TAKE ONE TABLET BY MOUTH DAILY SOLD: 02/13/2020 [facility] Rosuvastatin calcium 10 MG Oral Tablet [Crestor] Crestor 10 MG Crestor 10 MG 02/13/2020 12:00:00 AM EDT 1.0 {tablet} active Crestor 10 MG eCW1 ([facility]) valacyclovir 1000 MG Oral Tablet [Valtrex] Valtrex 1 GM Valt jose ramon 1 GM 02/13/2020 12:00:00 AM EDT 2.0 {tablet} active Va ltrex 1 GM eCW1 ([facility]) valacyclovir 1000 MG Oral Tablet [Valtrex] Valtrex 1 GM Valt jose ramon 1 GM 02/13/2020 12:00:00 AM EDT 2.0 {tablet} active Va ltrex 1 GM eCW1 ([facility]) Rosuvastatin calcium 10 MG Oral Tablet ROSUVASTATIN CALCIUM 02/13/2020 12:00:00 AM EDT tablet 90 TAKE ONE TABLET BY MOUTH DORENE LY TAKE ONE TABLET BY MOUTH DAILY SOLD: 05/27/2020 [facility] Rosuvastatin calcium 10 MG Oral Tablet [Crestor] Crestor 10 MG Crestor 10 MG 02/13/2020 12:00:00 AM EDT 1.0 {tablet} active Crestor 10 MG eCW1 ([facility]) valacyclovir 1000 MG Oral Tablet VALACYCLOVIR HCL 02/13/2020 12: 00:00 AM EDT tablet 12 TAKE TWO TABLETS BY MOUTH TWO TI MES A DAY FOR ONE DAY NEEDED TAKE TWO TABLETS BY MOUTH TWO TIMES A DAY FOR ONE DAY NEEDED SOLD: 02/13/2020 [facility] valacyclovir 1000 MG Oral Tablet [Valtrex] Valtrex 1 GM Valt jose ramon 1 GM 02/13/2020 12:00:00 AM EDT 2.0 {tablet} active Va ltrex 1 GM eCW1 ([facility]) Rosuvastatin calcium 10 MG Oral Tablet [Crestor] Crestor 10 MG Crestor 10 MG 02/13/2020 12:00:00 AM EDT 1.0 {tablet} active Crestor 10 MG eCW1 ([facility]) 1,250 mcg (50,000 unit) 02/13/2020 12:00:00 AM EDT capsule 12 TAKE ONE CAPSULE BY MOUTH WEEKLY TAKE ONE CAPSULE BY MOUTH WEEKLY SOLD: 02/13/2020 [facility] meloxicam 15 MG Oral Tablet Meloxicam 15 MG Meloxicam 15 MG 11/01/2019 12:00:00 AM EDT 1.0 {tablet} active Meloxicam 1 5 MG eCW1 ([facility]) Famotidine 20 MG Oral Tablet FAMOTIDINE 10/05/2019 12:00:00 AM EDT tab let 180 TAKE ONE TABLET BY MOUTH TWICE A DAY TAKE ONE TABLET BY MOUTH TWICE A DAY SOLD: 02/23/2020 [facility] Famotidine 20 MG Oral Tablet [Pepcid] Pepcid 20 MG Pepcid 20 MG 10/05/2019 12:00:00 AM EDT active Pepcid 2 0 MG eCW1 ([facility]) Famotidine 20 MG Oral Tablet [Pepcid] Pepcid 20 MG Pepcid 20 MG 10/05/2019 12:00:00 AM EDT active Pepcid 2 0 MG eCW1 ([facility]) Famotidine 20 MG Oral Tablet FAMOTIDINE 10/05/2019 12:00:00 AM EDT tab let 180 TAKE ONE TABLET BY MOUTH TWICE A DAY TAKE ONE TABLET BY MOUTH TWICE A DAY SOLD: 05/27/2020 [facility] Famotidine 20 MG Oral Tablet FAMOTIDINE 10/05/2019 12:00:00 AM EDT tab let 180 TAKE ONE TABLET BY MOUTH TWICE A DAY TAKE ONE TABLET BY MOUTH TWICE A DAY SOLD: 10/12/2019 [facility] 20 mg 08/21/2019 12:00:00 AM EDT tablet 90 TAKE ONE TABLET BY MOUTH EVERY DAY TAKE ONE TABLET BY MOUTH EVERY DAY SOLD: 08/22/2019 [facility] 20 mg 08/21/2019 12:00:00 AM EDT tablet 90 TAKE ONE TABLET BY MOUTH EVERY DAY TAKE ONE TABLET BY MOUTH EVERY DAY SOLD: 12/07/2019 [facility] 50 mg 08/01/2019 12:00:00 AM EDT tablet 90 TAKE ONE TABLET BY MOUTH EVERY DAY TAKE ONE TABLET BY MOUTH EVERY DAY SOLD: 11/08/2019 [facility] 50 mg 08/01/2019 12:00:00 AM EDT tablet 90 TAKE ONE TABLET BY MOUTH EVERY DAY TAKE ONE TABLET BY MOUTH EVERY DAY SOLD: 08/04/2019 [facility] benzonatate 100 MG Oral Capsule BENZONATATE 07/28/2019 12:00:00 AM EDT capsule 40 TAKE 1-2 CAPSULES BY MOUTH THREE TIMES A DAY NEEDED TAKE 1-2 CAPSULES BY MOUTH THREE TIMES A DAY NEEDED SOLD: 07/28/2019 [facility] 875-125 mg 07/27/2019 12:00:00 AM EDT tablet 20 TAKE ONE TABLET BY MOUTH EVERY 12 HOURS TAKE ONE TABLET BY MOUTH EVERY 12 HOURS SOLD: 07/27/2019 [facility] benzonatate 100 MG Oral Capsule [Tessalon Perles] Skyla olga Perles 100 MG Tessalon Perles 100 MG 07/27/2019 12:00:00 AM EDT active Tessalon Perles 100 MG eCW1 ([facility]) Amoxicillin 875 MG / Clavulanate 125 MG Oral Tablet Amoxicillin-Pot Clavulanate 875-125 MG Amoxicillin-Pot Clavulanate 875-125 MG 07/27/2019 12:00:00 AM ED T active 1 tablet eCW1 ([facility]) benzonatate 100 MG Oral Capsule [Tessalon Perles] Skyla olga Perles 100 MG Tessalon Perles 100 MG 07/27/2019 12:00:00 AM EDT active Tessalon Perles 100 MG eCW1 ([facility]) benzonatate 100 MG Oral Capsule [Tessalon Perles] Skyla olga Perles 100 MG Tessalon Perles 100 MG 07/27/2019 12:00:00 AM EDT active Tessalon Perles 100 MG eCW1 ([facility]) benzonatate 100 MG Oral Capsule [Tessalon Perles] Skyla olga Perles 100 MG Tessalon Perles 100 MG 07/27/2019 12:00:00 AM EDT active Tessalon Perles 100 MG eCW1 ([facility]) benzonatate 100 MG Oral Capsule [Tessalon Perles] Skyla olga Perles 100 MG Tessalon Perles 100 MG 07/27/2019 12:00:00 AM EDT active Tessalon Perles 100 MG eCW1 ([facility]) benzonatate 100 MG Oral Capsule [Tessalon Perles] Skyla olga Perles 100 MG Tessalon Perles 100 MG 07/27/2019 12:00:00 AM EDT active 1-2 capsule as needed eCW1 ([facility]) 20 mg 06/29/2019 12:00:00 AM EST tablet 30 TAKE ONE TABLET BY MOUTH EVERY EVENING TAKE ONE TABLET BY MOUTH EVERY EVENING SOLD: 07/02/2019 [facility] 20 mg 06/29/2019 12:00:00 AM EST tablet 30 TAKE ONE TABLET BY MOUTH EVERY EVENING TAKE ONE TABLET BY MOUTH EVERY EVENING SOLD: 09/08/2019 [facility] 15 mg 06/29/2019 12:00:00 AM EST tablet 30 TAKE ONE TABLET BY MOUTH EVERY DAY TAKE ONE TABLET BY MOUTH EVERY DAY SOLD: 07/02/2019 [facility] 15 mg 06/29/2019 12:00:00 AM EST tablet 30 TAKE ONE TABLET BY MOUTH EVERY DAY TAKE ONE TABLET BY MOUTH EVERY DAY SOLD: 11/08/2019 [facility] 1,250 mcg (50,000 unit) 06/29/2019 12:00:00 AM EST capsule 12 TAKE ONE CAPSULE BY MOUTH WEEKLY TAKE ONE CAPSULE BY MOUTH WEEKLY SOLD: 07/02/2019 [facility] 1,250 mcg (50,000 unit) 06/29/2019 12:00:00 AM EST capsule 12 TAKE ONE CAPSULE BY MOUTH WEEKLY TAKE ONE CAPSULE BY MOUTH WEEKLY SOLD: 05/13/2020 [facility] 20 mg 06/29/2019 12:00:00 AM EST tablet 30 TAKE ONE TABLET BY MOUTH EVERY EVENING TAKE ONE TABLET BY MOUTH EVERY EVENING SOLD: 08/04/2019 [facility] 4 mg 04/12/2019 12:00:00 AM EST tablet,disintegrating 9 DISSOLVE ONE TABLET ON TONGUE THREE TIMES A DAY DISSOLVE ONE TABLET ON TONGUE THREE TIMES A DAY SOLD: 04/12/2019 [facility] 15 mg 03/14/2019 12:00:00 AM EST tablet 30 TAKE ONE TABLET BY MOUTH EVERY DAY TAKE ONE TABLET BY MOUTH EVERY DAY SOLD: 04/19/2019 [facility] 15 mg 03/14/2019 12:00:00 AM EST tablet 30 TAKE ONE TABLET BY MOUTH EVERY DAY TAKE ONE TABLET BY MOUTH EVERY DAY SOLD: 05/24/2019 [facility] 20 mg 01/20/2019 12:00:00 AM EDT tablet 30 TAKE ONE TABLET BY MOUTH EVERY DAY TAKE ONE TABLET BY MOUTH EVERY DAY SOLD: 06/24/2019 [facility] 20 mg 01/20/2019 12:00:00 AM EDT tablet 30 TAKE ONE TABLET BY MOUTH EVERY DAY TAKE ONE TABLET BY MOUTH EVERY DAY SOLD: 07/22/2019 [facility] 20 mg 01/20/2019 12:00:00 AM EDT tablet 30 TAKE ONE TABLET BY MOUTH EVERY DAY TAKE ONE TABLET BY MOUTH EVERY DAY SOLD: 04/05/2019 [facility] 20 mg 01/20/2019 12:00:00 AM EDT tablet 30 TAKE ONE TABLET BY MOUTH EVERY DAY TAKE ONE TABLET BY MOUTH EVERY DAY SOLD: 05/16/2019 [facility] Losartan Potassium 50 MG Oral Tablet LOSARTAN POTASSIUM 12:00:00 AM EDT tablet 90 TAKE ONE TABLET BY MOUTH BRETT RY DAY TAKE ONE TABLET BY MOUTH EVERY DAY SOLD: 04/19/2019 [facility] 20 mg 12/26/2018 12:00:00 AM EDT tablet 30 TAKE ONE TABLET BY MOUTH EVERY DAY IN THE EVENING TAKE ONE TABLET BY MOUTH EVERY DAY IN THE EVENING SOLD : 04/19/2019 [facility] 20 mg 12/26/2018 12:00:00 AM EDT tablet 30 TAKE ONE TABLET BY MOUTH EVERY DAY IN THE EVENING TAKE ONE TABLET BY MOUTH EVERY DAY IN THE EVENING SOLD : 05/24/2019 [facility] Insurance Providers Payer name Policy type / Coverage type Policy ID Covered republican ID Covered republican's relationship to palm Policy Palm Plan Information [facility] [id number] HU2 [id number] BCBS EMPIRE ENDY DIV [id number] [employer] [id number] HU2 [id number] [facility] [id number] SPO [id number] [employer] E[employer]IRE [id number] SPO [id number] [facility] [id number] SPO [id number] [facility] [id number] SPO [id number] [employer] E[employer]IRE [id number] SPO [id number] [employer] E[employer] [id number] SPO [id number] [facility] [id number] SPO [id number] BC[employer] E[employer]IRE [id number] SPO [id number] ANSI-Commercial [id number] ANSI-Commercial [id number] ANSI-Commercial [id number] [employer] [id number] Family Depend ent [id number] [facility] [id number] HU2 [id number] ANSI-Commercial [id number] [employer] [id number] Family Depend ent [id number] EMPIRE (STATE EMP) O [id number] P [id number] [employer] [id number] Family Depend ent [id number] [employer] Plan F [id number] SPOUSE [id number] [employer] [id number] Family Depend ent [id number] [employer] [id number] Family Depend ent [id number] [employer] [id number] Family Depend ent [id number] [employer] [id number] Family Depend ent [id number] [employer] Family Depende nt [employer] COMM [id number] SPO [id number] [employer] Plan F [id number] SPOUSE [id number] EMPIRE (STATE EMP) O [id number] P [id number] EMPIRE ([facility]) O UNAVAILABLE P UNAVAILABLE [id number] Problems, Conditions, and Diagnoses Code Display Name Description Problem Type Effective Dates Data Source(s) J32.9 [id number] Sinusitis, unspecified chronicity, unspec ified location Problem 07/27/2019 12:00:00 AM EDT eCW1 ([facility]) J32.9 [id number] Sinusitis, unspecified chronicity, unspec ified location Problem 07/27/2019 12:00:00 AM EDT [facility] ([facility]) Z23 Encounter for immunization Encounter for immunization Diagnosis 05/25/2020 10:46:00 AM [facility] R59.9 Enlarged lymph nodes, unspecified ENLARGED LYMPH NODES, UNSPECIFIED Diagnosis 01/04/2020 03:00:00 PM EDT [facility] R22.32 Localized swelling, mass and lump, left upper limb LOCALIZED SWELLING, MASS AND LUMP, LEFT UPPER LIMB Diagnosis 01/04/2020 03:00:00 PM [facility] Z12.31 Encounter for screening mammogram for ma lignant neoplasm of breast ENCNTR SCREEN MAMMOGRAM FOR MALIGNANT NEOPLASM OF BREAST Diagnosis 11/2019 03:00:00 PM [facility] Y92.[address] or not applicable UNSPECIFIED PLACE OR NOT APPLICABLE Diagnosis 04/12/2019 02:48:00 PM [facility] Y99.8 Other external cause status OTHER EXTERNAL CAUSE STATU S Diagnosis 04/12/2019 02:48:00 PM [facility] Y93.9 Activity, unspecified ACTIVITY, UNSPECIFIED Diagnosis 04/12/2019 02:48:00 PM [facility] R55 Syncope and collapse SYNCOPE AND COLLAPSE Diagnosis 04/12/2019 02:48:00 PM [facility] T50.995A Adverse effect of other drug s, medicaments and biological substances, initial encounter ADVERSE EFFECT OF DRUG/MEDS/BIOL SUBST, INIT Diagnosis 04/12/2019 02:48:00 PM [facility] R42 Dizziness and giddiness DIZZINESS AND GIDDINESS Diagno sis 04/12/2019 02:48:00 PM [facility] Results ID Date Data Source [id number] 04/30/2020 12:00:00 AM EST [facility] Name Value Range Interpretation Code Description Data Sylvie rce(s) Supporting Document(s) SARS-CoV2 Rapid Antigen [facility] This lab was ordered by [facility] and reported by [facility]. ID Date Data Source [id number] 01/04/2020 04:11:00 PM EDT [facility] DATE OF EXAMINATION: 01/04/2020 14:49 EDT EXTREMITY LIMITED HISTORY: Axillary lump ULTRASOUND LEFT axilla Real-time ultrasound imaging was performed utilizing B- mode/louise scale and colorDoppler imaging where applicable. FINDINGS: Several nodes are identified the largest measuring 2.8 x 1.6 x 2.3 cm. These arelikely inflammatory in nature but should continue to be followed to resolution.There is no definite solid mass. IMPRESSION: Several inflammatory-appearing nodes may clinically be followed to resolution Electronically signed in PS360 by: Jasmine Green M.D. 01/04/2020 16:06 EDT Name Value Range Interpretation Code Description Data Sylvie rce(s) Supporting Document(s) ID Date Data Source [id number] 05/10/2019 11:05:00 AM [facility] DATE OF EXAMINATION: 05/09/2019 15:05 EST MAMMO SCREEN BILAT WITH CAD HISTORY: Screening Your patient meets NCCN testing criteria and is already in her high- riskprogram. Her new risk score for this year is 17.5%. Comparison is made to prior study dated 01/27/2018. 2-D bilateral digital mammogram in the CC and MLO planes were performed withsupplemental 3-D tomosynthesis of both breasts. The images were analyzed through the latest version of the DoublePositiveD computer aideddiagnosis system. The patient states that her last clinical breast examination was 2 years ago. Craniocaudal and oblique lateral views of the breasts were obtained. Thebreasts are composed of normal glandular tissue. There is no dominant mass,suspicious clustered calcification, or architectural distortion. IMPRESSION: No mammographic evidence of malignancy. BiRAD 1 - Negative, Routine Yearly Mammographic Follow-up Recommended. Furthermore, in patients with dense glandular tissue, supplemental imagingmodalities should be considered. 10-15% of cancers are not identified by mammography. This usually occurs whenthe mass is of the same radiographic density as the surrounding breast tissue,emphasizing the importance of breast self examination (BSE) and physicalexamination. A normal mammogram should not delay biopsy if a suspicious mass orabnormal findings are present upon physical examination. Electronically signed in PS360 by: Jasmine Green M.D. 05/10/2019 10:59 EST Name Value Range Interpretation Code Description Data Sylvie rce(s) Supporting Document(s) ID Date Data Source [id number] 04/24/2019 03:02:00 PM EST [facility] Patient: HOLLY DRUMMOND [facility].VisitID: [id number] [place] [address] [phone], [facility] Date/Time: 04/12/2019 14:01 Weight:108.8 kg (S). Height/Length:65 inches (S). BMI:40 PAST HISTORYProblems:Sciatica.Anxiety.GERD.Hypertension. Additional Surgeries:no known surgeries. Medications:Meloxicam Oral (Tablet 15 mg) 1 tablet, daily, last dose today.Famotidine Oral 40 mg, 2x a day, last dose today.Citalopram Hydrobromide Oral (Tablet 20 mg) 1 tablet, daily, last dose today.Simvastatin Oral 20 mg, daily, last dose today.Losartan Potassium Oral 50 mg, daily, last dose today. Allergies:No Known Drug Allergy. FAMILY HISTORYNegative. No significant family medical history. (Electronically signed by Meng Harris 04/13/2019 09:38) Name Value Range Interpretation Code Description Data Sylvie rce(s) Supporting Document(s) ID Date Data Source [id number] 04/12/2019 03:13:00 PM EST [facility] DATE OF EXAMINATION: 04/12/2019 14:[address] BRAIN W/O CONTRAST HISTORY: Syncope TECHNIQUE: This CT exam was performed using the following dose reduction techniques:automatic exposure control, adjustment of mA and/or kV according to thepatient's size, and use of iterative reconstruction technique. Standard contiguous axial spiral imaging was obtained from the skull basethrough the vertex without contrast administration and with coronalreformatting. FINDINGS: BRAIN: Basilar cisterns and ventricles appear normal. No space occupyinglesions, intracerebral edema, or any signs of mass effects are noted. Base ofthe skull appears normal. IMPRESSION: Unremarkable CT scan of the brain Electronically signed in PS360 by: Jasmine Green M.D. 04/12/2019 15:07 EST Name Value Range Interpretation Code Description Data [facility] rce(s) Supporting Document(s) ID Date Data Source [id number] 04/12/2019 03:02:00 PM [facility] TSYSORDER [id number] Name Value Range Interpretation Code Description [facility] Document(s) GLUCOSE 114 mg/dL 74-106 [facility] BLOOD UREA NITROGEN 11 mg/dL 7-18 [facility] ital CREATININE 0.7 mg/dL 0.6-1.0 [facility] SODIUM 137 mmol/L 136-145 [facility] POTASSIUM 3.9 mmol/L 3.5-5.1 [facility] CHLORIDE 98 mmol/L 98-107 [facility] CO2 27 mmol/L 21-32 [facility] CALCIUM 8.5 mg/dL 8.5-10.1 [facility] ANION GAP 12.0 mmol/L 5-12 [facility] GLOMERULAR FILTRATION RATE 89 mL/min [facility] GFR IS CALCULATED IN mL/min/1.73m2 PETEY L FUNCTION: >90MILDLY DECREASED: 60-89MILDY TO MODERATELY DECREASED: 45-59 MODERATELY TO SEVERELY DECREASED: 30-44SEVERELY DECREASED: 15-29RENAL FAILURE: <15 AST 17 U/L 15-37 [facility] ALT 26 U/L 12-78 [facility] ALKALINE PHOSPHATASE 57 U/L 46-116 [facility] pital TOTAL BILIRUBIN 0.3 mg/dL 0.2-1.0 [facility] TOTAL PROTEIN 7.6 g/dl 6.4-8.2 [facility] ALBUMIN 3.7 gm/dL 3.4-5.0 [facility] ID Date Data Source [id number] 04/12/2019 02:51:00 PM [facility] TSYSORDER [id number] Name Value Range Interpretation Code Description Data Sylvie rce(s) Supporting Document(s) WHITE BLOOD COUNT 8.6 K/mm3 4.0-10.0 [facility] RED [facility]LOOD COUNT 4.64 M/mm3 4.00-5.50 [facility] HEMOGLOBIN 13.5 gm/dL 12.0-16.0 [facility] HEMATOCRIT 40.2 % 36.0-48.8 [facility] MEAN CELL VOLUME 86.6 fl 80-96 [facility] MEAN CORPUSCULAR HEMOGLOBIN 29.1 pg 27.0-31.0 [facility] MEAN CORPUSCULAR HGB CONC 33.6 g/dl 32.0-36.0 [facility] RED CELL DISTRIBUTION WIDTH 13.6 % 10.0-14.5 [facility] PLATELET COUNT 243 K/mm3 172-450 [facility] MEAN PLATELET VOLUME 9.6 fl 9.0-13.0 [facility] pital GRAN % 92.2 % 50-80.0 H [facility] IG% 0.2 % 0.0-0.2 [facility] LYMPH % 5.2 % 25.0-50.0 L [facility] MONO % 2.1 % 2.0-10.0 [facility] EOS % 0.2 % 0-5.0 [facility] BASO % 0.1 % 0.0-2.0 [facility] GRAN # 8.0 K/mm3 2.0-8.00 [facility] IG# 0.0 K/mm3 0.0-0.2 [facility] LYMPH # 0.5 K/mm3 1.0-5.0 L [facility] MONO # 0.2 K/mm3 0.10-1.20 [facility] EOS # 0.0 K/mm3 0.0-0.5 [facility] BASO # 0.0 K/mm3 0.0-0.2 [facility] Procedure Social History Code Duration Value Status Description Data Source(s ) Smoking 02/13/2020 12:00:00 AM EDT Never Smoker completed Never S noam eCW1 ([facility]) Smoking 02/13/2020 12:00:00 AM EDT Never Smoker completed Never S moker eCW1 ([facility]) Smoking 02/13/2020 12:00:00 AM EDT Never Smoker completed Never S moker eCW1 ([facility]) Smoking 11/01/2019 12:00:00 AM EDT Never Smoker completed Never S moker eCW1 ([facility]) Smoking 10/05/2019 12:00:00 AM EDT Never Smoker completed Never S moker eCW1 ([facility]) Vital Signs ID Date Data Source [id number] Name Value Range Interpretation Code Description Data Source(s) Diastolic blood pressure 89 mm[Hg] 89 mm[Hg] eCW1 ([facility]) Systolic blood pressure 143 mm[Hg] 143 mm[Hg] e CW1 ([facility]) Body temperature [degF] eCW1 ([facility]) Respiratory rate 16 /min 16 /min eCW1 ([facility]) Heart rate 84 /min 84 /min eCW1 ([facility]) Body mass index (BMI) [Ratio] 40.19 kg/m2 40.19 kg/m2 eCW1 ([facility]) Body height [in_i] eCW1 ([facility]) Body weight 249 [lb_av] 249 [lb_av] eCW1 ([facility]) Diastolic blood pressure 69 mm[Hg] 69 mm[Hg] eCW1 ([facility]) Systolic blood pressure 115 mm[Hg] 115 mm[Hg] e CW1 ([facility]) Body temperature 99.0 [degF] 99.0 [degF] eCW1 ( [facility]) Respiratory rate 20 /min 20 /min eCW1 ([facility]) Heart rate 105 /min 105 /min eCW1 ([facility]) Body mass index (BMI) [Ratio] 39.22 kg/m2 39.22 kg/m2 eCW1 ([facility]) Body height [in_i] eCW1 ([facility]) Body weight 243 [lb_av] 243 [lb_av] eCW1 ([facility]) Diastolic blood pressure 85 mm[Hg] 85 mm[Hg] eCW1 ([facility]) Systolic blood pressure 128 mm[Hg] 128 mm[Hg] e CW1 ([facility]) Body temperature 98.9 [degF] 98.9 [degF] eCW1 ( [facility]) Respiratory rate 20 /min 20 /min eCW1 ([facility]) Heart rate 90 /min 90 /min eCW1 ([facility]) Body mass index (BMI) [Ratio] 39.06 kg/m2 39.06 kg/m2 eCW1 ([facility]) Body height [in_i] eCW1 ([facility]) Body weight 242 [lb_av] 242 [lb_av] eCW1 ([facility]) Diastolic blood pressure 94 mm[Hg] 94 mm[Hg] eCW1 ([facility]) Systolic blood pressure 146 mm[Hg] 146 mm[Hg] e CW1 ([facility]) Body temperature 98.9 [degF] 98.9 [degF] eCW1 ( [facility]) Respiratory rate 20 /min 20 /min eCW1 ([facility]) Heart rate 101 /min 101 /min eCW1 ([facility]) Body mass index (BMI) [Ratio] 39.22 kg/m2 39.22 kg/m2 eCW1 ([facility]) Body height [in_us] eCW1 ([facility]) Body weight Measured 243 [lb_av] 243 [lb_av] eC W1 ([facility]) Diastolic blood pressure 101 mm[Hg] 101 mm[Hg] eCW1 ([facility]) Systolic blood pressure 160 mm[Hg] 160 mm[Hg] e CW1 ([facility]) Body temperature 98.6 [degF] 98.6 [degF] eCW1 ( [facility]) Respiratory rate 20 /min 20 /min eCW1 ([facility]) Heart rate 86 /min 86 /min eCW1 ([facility]) Body mass index (BMI) [Ratio] 39.22 kg/m2 39.22 kg/m2 eCW1 ([facility]) Body height [in_us] eCW1 ([facility]) Body weight Measured 243 [lb_av] 243 [lb_av] eC W1 ([facility]) Patient Treatment Plan of Care Planned Activity Planned Date Details Description Data Source (s) Rosuvastatin calcium 10 MG Oral Tablet [Crestor] 02/13/2020 12:00:0 0 AM EDT eCW1 ([facility]) valacyclovir 1000 MG Oral Tablet [Valtrex] 02/13/2020 12:00:00 AM E DT eCW1 ([facility]) Rosuvastatin calcium 10 MG Oral Tablet [Crestor] 02/13/2020 12:00:0 0 AM EDT eCW1 ([facility]) valacyclovir 1000 MG Oral Tablet [Valtrex] 02/13/2020 12:00:00 AM E DT eCW1 ([facility]) Rosuvastatin calcium 10 MG Oral Tablet [Crestor] 02/13/2020 12:00:0 0 AM EDT eCW1 ([facility]) valacyclovir 1000 MG Oral Tablet [Valtrex] 02/13/2020 12:00:00 AM E DT eCW1 ([facility]) meloxicam 15 MG Oral Tablet 11/01/2019 12:00:00 AM EDT eCW1 ([facility]) Famotidine 20 MG Oral Tablet [Pepcid] 10/05/2019 12:00:00 AM EDT eCW1 ([facility]) Famotidine 20 MG Oral Tablet [Pepcid] 10/05/2019 12:00:00 AM EDT eCW1 ([facility]) benzonatate 100 MG Oral Capsule [Tessalon Perles] 07/27/2019 12: 00:00 AM EDT eCW1 ([facility]) benzonatate 100 MG Oral Capsule [Tessalon Perles] 07/27/2019 12: 00:00 AM EDT eCW1 ([facility]) benzonatate 100 MG Oral Capsule [Tessalon Perles] 07/27/2019 12: 00:00 AM EDT eCW1 ([facility]) benzonatate 100 MG Oral Capsule [Tessalon Perles] 07/27/2019 12: 00:00 AM EDT eCW1 ([facility]) benzonatate 100 MG Oral Capsule [Tessalon Perles] 07/27/2019 12: 00:00 AM EDT eCW1 ([facility]) Amoxicillin 875 MG / Clavulanate 125 MG Oral Tablet 07/27/19 12:00:00 AM EDT eCW1 [facility] benzonatate 100 MG Oral Capsule [Tessalon Perljennifer] 07/27/2019 12: 00:00 AM EDT eCW1 ([facility])
[2020-05-30] MEDS ORDERED: VITA100T59 PO (11:42)
[2020-05-30 11:56] LABS: BASO % 0.3 % (0.0-1.0); EOS # 0.1 10^3/uL (0.0-0.5); EOS % 0.5 % (0.0-3.0); HEMATOCRIT 39.2 % (36.0-47.0); HEMOGLOBIN 12.5 g/dl (12.0-15.5); LYMPH # 1.5 10^3/uL (1.5-5.0); LYMPH % 16.2 % (24.0-44.0); MEAN CORPUSCULAR HGB CONC 31.9 g/dl (32.0-36.5); MEAN CORPUSCULAR VOLUME 87.7 fl (80.0-96.0); MONO # 0.4 10^3/uL (0.0-0.8); MONO % 4.3 % (0.0-5.0); NEUTROPHILS # 7.4 10^3/uL (1.5-8.5); NEUTROPHILS % 78.4 % (36.0-66.0); PLATELET COUNT, AUTOMATED 344 10^3/uL (150-450); RED BLOOD COUNT 4.47 10^6/uL (4.00-5.40); WHITE BLOOD COUNT 9.4 10^3/uL (4.0-10.0)
--- NOTE | 2020-05-30 12:06 | REP ---
INDICATION: CHEST PAIN. COMPARISON: Comparison chest x-ray August 23, 2018. TECHNIQUE: Portable upright AP chest radiograph. FINDINGS: The lungs are well inflated and free of infiltrate. Pleural angles are sharp. Heart size is normal. Pulmonary vasculature is not increased. Monitoring electrodes are seen. IMPRESSION: No active disease. <Electronically signed by Enrico Brannon > 05/30/20 1206
[2020-05-30] MEDS ORDERED: GI COCKTAIL 50ML BTL(HYOSCYAMINE/MAALOX/LIDOCAINE VISCOUS)(1:3:1) PO ONE (12:30)
[2020-05-30 12:36] LABS: BLOOD UREA NITROGEN 7 MG/DL (7-18); CALCIUM LEVEL 9.9 MG/DL (8.5-10.1); CARBON DIOXIDE LEVEL 28 MEQ/L (21-32); CHLORIDE LEVEL 104 MEQ/L (98-107); CK-MB VALUE MASS < 1.0 NG/ML (<3.6); CPK CREATINE PHOSPHOKINASE 74 U/L (26-192); CREATININE FOR GFR 0.74 MG/DL (0.55-1.30); GLOMERULAR FILTRATION RATE > 60.0 (>58); GLUCOSE, FASTING 135 MG/DL (70-100); MB/CK RELATIVE INDEX 1.35 (< OR =4); POTASSIUM SERUM 3.9 MEQ/L (3.5-5.1); SODIUM LEVEL 140 MEQ/L (136-145); TROPONIN I < 0.02 NG/ML (< 0.10)
[2020-05-30 12:59] LABS: ALBUMIN 3.8 GM/DL (3.2-5.2); ALT/SGPT 28 U/L (12-78); BILIRUBIN,DIRECT < 0.1 MG/DL (0.0-0.2); BILIRUBIN,TOTAL 0.1 MG/DL (0.2-1.0); TOTAL PROTEIN 7.6 GM/DL (6.4-8.2)
--- OUTSIDE RECORDS SUMMARY | 2020-05-30 13:10 | CCD ---
Author Author [facility] Organization [facility] Address Unknown Phone Unavailable Care Team Providers Care Property Field Adjuster Name Role Phone FAITH MOORE MD Unavailable [...] NAJERA MD Unavailable Unavailable Alberry, D Vida MOLD MAKING SUPERVISOR Unavailable Unavailable Alberry, D Vida MOLD MAKING SUPERVISOR Unavailable Unavailable Alberry, D Vida MOLD MAKING SUPERVISOR Unavailable Unavailable Alberry, D Vida MOLD MAKING SUPERVISOR Unavailable Unavailable Alberry, D Vida MOLD MAKING SUPERVISOR Unavailable Unavailable Alberry, D Vida MOLD MAKING SUPERVISOR Unavailable Unavailable Alberry, D Vida MOLD MAKING SUPERVISOR Unavailable Unavailable Alberry, D Vida MOLD MAKING SUPERVISOR Unavailable Unavailable Alberry, D Vida MOLD MAKING SUPERVISOR Unavailable Unavailable Alberry, D Vida MOLD MAKING SUPERVISOR Unavailable Unavailable Alberry, D Vida MOLD MAKING SUPERVISOR Unavailable Unavailable Alberry, D Vida MOLD MAKING SUPERVISOR Unavailable Unavailable Alberry, D Vida MOLD MAKING SUPERVISOR Unavailable Unavailable Alberry, D Vida MOLD MAKING SUPERVISOR Unavailable Unavailable Alberry, D Vida MOLD MAKING SUPERVISOR Unavailable Unavailable Alberry, D Vida MOLD MAKING SUPERVISOR Unavailable Unavailable Alberry, D Vida MOLD MAKING SUPERVISOR Unavailable Unavailable Alberry, D Vida MOLD MAKING SUPERVISOR Unavailable Unavailable Alberry, D Vida MOLD MAKING SUPERVISOR Unavailable Unavailable Alberry, D Vida MOLD MAKING SUPERVISOR Unavailable Unavailable Alberry, D Vida MOLD MAKING SUPERVISOR Unavailable Unavailable Alberry, D Vida MOLD MAKING SUPERVISOR Unavailable Unavailable Alberry, D Vida MOLD MAKING SUPERVISOR Unavailable Unavailable Alberry, D Vida MOLD MAKING SUPERVISOR Unavailable Unavailable Alberry, D Vida MOLD MAKING SUPERVISOR Unavailable Unavailable Alberry, D Vida MOLD MAKING SUPERVISOR Unavailable Unavailable Alberry, D Vida MOLD MAKING SUPERVISOR Unavailable Unavailable Alberry, D Vida MOLD MAKING SUPERVISOR Unavailable Unavailable Alberry, D Vida MOLD MAKING SUPERVISOR Unavailable Unavailable Alberry, D Vida MOLD MAKING SUPERVISOR Unavailable Unavailable Alberry, D Vida MOLD MAKING SUPERVISOR Unavailable Unavailable Alberry, D Vida MOLD MAKING SUPERVISOR Unavailable Unavailable Alberry, D Vida MOLD MAKING SUPERVISOR Unavailable Unavailable Alberry, D Vida MOLD MAKING SUPERVISOR Unavailable Unavailable Alberry, D Vida MOLD MAKING SUPERVISOR Unavailable Unavailable Alberry, D Vida MOLD MAKING SUPERVISOR Unavailable Unavailable Alberry, D Vida MOLD MAKING SUPERVISOR Unavailable Unavailable Alberry, D Vida MOLD MAKING SUPERVISOR Unavailable Unavailable Alberry, D Vida MOLD MAKING SUPERVISOR Unavailable Unavailable Alberry, D Vida MOLD MAKING SUPERVISOR Unavailable Unavailable Alberry, D Vida MOLD MAKING SUPERVISOR Unavailable Unavailable Alberry, D Vida MOLD MAKING SUPERVISOR Unavailable Unavailable Alberry, D Vida MOLD MAKING SUPERVISOR Unavailable Unavailable Alberry, D Vida MOLD MAKING SUPERVISOR Unavailable Unavailable Alberry, D Vida MOLD MAKING SUPERVISOR Unavailable Unavailable Alberry, D Vida MOLD MAKING SUPERVISOR Unavailable Unavailable Alberry, D Ivda MOLD MAKING SUPERVISOR Unavailable Unavailable Alberry, D Vida MOLD MAKING SUPERVISOR Unavailable Unavailable Salvatore, Fabienne MOLD MAKING SUPERVISOR Unavailable Unavailable Salvatore, Fabienne MOLD MAKING SUPERVISOR Unavailable Unavailable Salvatore, Fabienne MOLD MAKING SUPERVISOR Unavailable Unavailable Salvatore, Fabienne MOLD MAKING SUPERVISOR Unavailable Unavailable Salvatore, Fabienne MOLD MAKING SUPERVISOR Unavailable Unavailable Salvatore, Fabienne MOLD MAKING SUPERVISOR Unavailable Unavailable Salvatore, Fabienne MOLD MAKING SUPERVISOR Unavailable Unavailable Salvatore, Fabienne MOLD MAKING SUPERVISOR Unavailable Unavailable Salvatore, Fabienne MOLD MAKING SUPERVISOR Unavailable Unavailable Salvatore, Fabienne MOLD MAKING SUPERVISOR Unavailable Unavailable Salvatore, Fabienne MOLD MAKING SUPERVISOR Unavailable Unavailable Salvatore, Fabienne MOLD MAKING SUPERVISOR Unavailable Unavailable Salvatore, Fabienne MOLD MAKING SUPERVISOR Unavailable Unavailable Salvatore, Fabienne MOLD MAKING SUPERVISOR Unavailable Unavailable Salvatore, Fabienne MOLD MAKING SUPERVISOR Unavailable Unavailable Salvatore, Fabienne MOLD MAKING SUPERVISOR Unavailable Unavailable Salvatore, Fabienne MOLD MAKING SUPERVISOR Unavailable Unavailable Salvatore, Fabienne MOLD MAKING SUPERVISOR Unavailable Unavailable Salvatore, Fabienne MOLD MAKING SUPERVISOR Unavailable Unavailable Salvatore, Fabienne MOLD MAKING SUPERVISOR Unavailable Unavailable Salvatore, Fabienne MOLD MAKING SUPERVISOR Unavailable Unavailable Salvatore, Fabienne MOLD MAKING SUPERVISOR Unavailable Unavailable Salvatore, Fabienne MOLD MAKING SUPERVISOR Unavailable Unavailable Salvatore, Fabienne MOLD MAKING SUPERVISOR Unavailable Unavailable Salvatore, Fabienne MOLD MAKING SUPERVISOR Unavailable Unavailable Salvatore, Fabienne MOLD MAKING SUPERVISOR Unavailable Unavailable Salvatore, Fabienne MOLD MAKING SUPERVISOR Unavailable Unavailable Salvatore, Fabienne MOLD MAKING SUPERVISOR Unavailable Unavailable Salvatore, Fabienne MOLD MAKING SUPERVISOR Unavailable Unavailable Salvatore, Fabienne MOLD MAKING SUPERVISOR Unavailable Unavailable Salvatore, Fabienne MOLD MAKING SUPERVISOR Unavailable Unavailable Salvatore, Fabienne MOLD MAKING SUPERVISOR Unavailable Unavailable Salvatore, Fabienne MOLD MAKING SUPERVISOR Unavailable Unavailable Salvatore, Fabienne MOLD MAKING SUPERVISOR Unavailable Unavailable Salvatore, Fabienne MOLD MAKING SUPERVISOR Unavailable Unavailable Salvatore, Fabienne MOLD MAKING SUPERVISOR Unavailable Unavailable Salvatore, Fabienne MOLD MAKING SUPERVISOR Unavailable Unavailable Salvatore, Fabienne MOLD MAKING SUPERVISOR Unavailable Unavailable Salvatore, Fabienne MOLD MAKING SUPERVISOR Unavailable Unavailable Salvatore, Fabienne MOLD MAKING SUPERVISOR Unavailable Unavailable Salvatore, Fabienne MOLD MAKING SUPERVISOR Unavailable Unavailable Salvatore, Fabienne MOLD MAKING SUPERVISOR Unavailable Unavailable Salvatore, Fabienne MOLD MAKING SUPERVISOR Unavailable Unavailable Salvatore, Fabienne MOLD MAKING SUPERVISOR Unavailable Unavailable Salvatore, Fabienne MOLD MAKING SUPERVISOR Unavailable Unavailable Salvatore, Fabienne MOLD MAKING SUPERVISOR Unavailable Unavailable Salvatore, Fabienne MOLD MAKING SUPERVISOR Unavailable Unavailable Salvatore, Fabienne MOLD MAKING SUPERVISOR Unavailable Unavailable Salvatore, Fabienne MOLD MAKING SUPERVISOR Unavailable Unavailable Salvatore, Fabienne MOLD MAKING SUPERVISOR Unavailable Unavailable Salvatore, Fabienne MOLD MAKING SUPERVISOR Unavailable Unavailable Salvatore, Fabienne MOLD MAKING SUPERVISOR Unavailable Unavailable Salvatore, Fabienne MOLD MAKING SUPERVISOR Unavailable Unavailable WILLAM, MARIMAR Unavailable Unavailable Naima [...] Unavailable Dombek-Lang, V Tamiko MD Unavailable Unavailable ELINA DALEY M.D. Unavailable ELINA DALEY M.D. Unavailable ELINA DALEY M.D. Unavailable Dias, Marimar MOLD MAKING SUPERVISOR Unavailable Unavailable Dias, Marimar MOLD MAKING SUPERVISOR Unavailable Unavailable Dias, Marimar MOLD MAKING SUPERVISOR Unavailable Unavailable Dias, Marimar MOLD MAKING SUPERVISOR Unavailable Unavailable Dias, Marimar MOLD MAKING SUPERVISOR Unavailable Unavailable Dias, Marimar MOLD MAKING SUPERVISOR Unavailable Unavailable Dias, Marimar MOLD MAKING SUPERVISOR Unavailable Unavailable Dias, Marimar MOLD MAKING SUPERVISOR Unavailable Unavailable Dias, Marimar MOLD MAKING SUPERVISOR Unavailable Unavailable Dias, Mariamr MOLD MAKING SUPERVISOR Unavailable Unavailable Dias, Marimar MOLD MAKING SUPERVISOR Unavailable Unavailable Dias, Marimar MOLD MAKING SUPERVISOR Unavailable Unavailable Dias, Marimar MOLD MAKING SUPERVISOR Unavailable Unavailable Dias, Marimar MOLD MAKING SUPERVISOR Unavailable Unavailable Dias, Marimar MOLD MAKING SUPERVISOR Unavailable Unavailable Dias, Marimar MOLD MAKING SUPERVISOR Unavailable Unavailable Dias, Marimar MOLD MAKING SUPERVISOR Unavailable Unavailable Dias, Marimar MOLD MAKING SUPERVISOR Unavailable Unavailable Dias, Marimar MOLD MAKING SUPERVISOR Unavailable Unavailable Dias, Marimar MOLD MAKING SUPERVISOR Unavailable Unavailable Dias, Marimar MOLD MAKING SUPERVISOR Unavailable Unavailable Dias, Marimar MOLD MAKING SUPERVISOR Unavailable Unavailable Dias, Marimar MOLD MAKING SUPERVISOR Unavailable Unavailable Dias, Marimar MOLD MAKING SUPERVISOR Unavailable Unavailable Dias, Marimar MOLD MAKING SUPERVISOR Unavailable Unavailable Dias, Marimar MOLD MAKING SUPERVISOR Unavailable Unavailable Dias, Marimar MOLD MAKING SUPERVISOR Unavailable Unavailable Dias, Marimar MOLD MAKING SUPERVISOR Unavailable Unavailable Dias, Marimar MOLD MAKING SUPERVISOR Unavailable Unavailable Dias, Marimar MOLD MAKING SUPERVISOR Unavailable Unavailable Dias, Marimar MOLD MAKING SUPERVISOR Unavailable Unavailable Dias, Marimar MOLD MAKING SUPERVISOR Unavailable Unavailable Dias, Marimar MOLD MAKING SUPERVISOR Unavailable Unavailable Dias, Marimar MOLD MAKING SUPERVISOR Unavailable Unavailable Dias, Marimar MOLD MAKING SUPERVISOR Unavailable Unavailable Dias, Marimar MOLD MAKING SUPERVISOR Unavailable Unavailable Re-disclosure Warning The records that [...] is protected by Article 27-F of the [facility] Public Health law. If you continue you may have access to information: Regarding HIV / AIDS; Provided by facilities licensed or operated by the [facility] Office of Mental Health; or Provided by the [facility] Office for People With Developmental Disabilities. If such information is present, then the following [facility] mandated warning applies: This information has been [...] law may result in a fine or assisted sentence or both. A general authorization for the release of medical or other information is NOT sufficient authorization for further disc losure. Allergies and Adverse Reactions Type Description Substance Reaction Status Data Source(s ) No Known Drug Allergies No Known Drug Allergies [facility] Melatonin Melatonin Melatonin Nausea/Vomiting/passed out Active eCW1 ([facility]) Melatonin Melatonin Melatonin Nausea/Vomiting/passed out Active eCW1 ([facility]) Family History Family Member Name Family Member Gender Family Member Status Date o f Status Description Data Source(s) Unknown Unknown Problem MEDENT ([facility]) Two brothers. One with Hodgkin's lymphom a, one alive and well. One sister alive and well Encounters Encounter Providers Location Date Indications Data Source(s ) Unknown [id number] [facility] [place] [address] 05/27/2020 12:00:00 AM EST eCW1 (Formerly [facility]) Outpatient Attender: ELINA DALEY M.D.Record Maker: MARIMAR RIOS 05/23/2020 04:23:02 PM EST - 05/25/2020 11:46:00 AM [facility] Patient discharged. Unknown [id number] [facility] [place] [address] 02/23/2020 12:00:00 AM EDT eCW1 (Formerly [facility]) Outpatient [facility] [facility] [address] 02/13/2020 12:00:00 AM EDT eCW1 ([facility]) Outpatient Attender: Vida Forrest FNPReferrer: Marimar martinez MOLD MAKING SUPERVISOR 01/04/2020 03:00:00 PM [facility] Outpatient [address] [facility] [place] [address] 11/01/2019 12:00:00 AM EDT eCW1 ([facility]) Outpatient [facility] [place] [address] 10/05/2019 12:00:00 AM EDT eCW1 ([facility]) [facility] [address] [place] [address] [place] [address] 07/27/2019 12:00:00 AM EDT eCW1 ([facility]) [address] [address] 07/27/2019 12:00:00 AM EDT eCW1 ([facility]) [address] [address] 05/30/2019 12:00:00 AM EST eCW1 ([facility]) Outpatient Attender: Marimar Dias FNPReferrer: Marimar Dias [facility] 05/09/2019 03:00:00 PM EST - 05/09/2019 03:00:00 PM [facility] [address] [address] 04/19/2019 12:00:00 AM EST eCW1 ([facility]) Outpatient Attender: Marimar Dias [facility] 04/18/2019 03:00:00 PM [facility] Emergency Attender: DION PACE PAReferrer: John Dias [facility]Y [facility]-ER 04/12/2019 02:48:00 PM EST - 04/12/2019 04:44:00 PM [facility] Patient discharged. [address] [address] 04/12/2019 12:00:00 AM EST eCW1 ([facility]) Outpatient Attender: Fabienne BENNETTP 03:00:00 PM EDT - 01/27/2018 03:00:00 PM [facility] Outpatient Attender: Tamiko Coates MD 03/19/2016 09:1 7:00 AM [facility] Outpatient Attender: JACQUELINE MOORE MD 03/24/2014 09:01:00 A [facility] Emergency Attender: DONG NAJERA MD 01/02 09:21:00 AM EDT - 01/28/2014 10:23:00 AM [facility] Immunizations Vaccine Date Status Description Data Source(s) IIV3. This is one of two codes replacing CVX 15, which is being retired. 01/24/2020 03:32:00 PM EDT completed eCW1 ([facility]) IIV3. This is one of two codes replacing CVX 15, which is being retired. 01/24/2020 03:32:00 PM EDT completed eCW1 ([facility]) IIV3. This is one of two codes replacing CVX 15, which is being retired. 01/24/2020 03:32:00 PM EDT completed eCW1 ([facility]) INFLUENZA VIRUS VACCINE QUADRIVAL (6 MOS AND [...] 1.0 {tablet} active Crestor 10 MG eCW1 ([facility]) valacyclovir 1000 MG Oral Tablet [Valtrex] Valtrex 1 GM Valt jose ramon 1 GM 02/13/2020 12:00:00 AM EDT 2.0 {tablet} active Va ltrex 1 GM eCW1 ([facility]) valacyclovir 1000 MG Oral Tablet [Valtrex] Valtrex 1 GM Valt jose ramon 1 GM 02/13/2020 12:00:00 AM EDT 2.0 {tablet} active Va ltrex 1 GM eCW1 ([facility]) Rosuvastatin calcium 10 MG Oral Tablet ROSUVASTATIN CALCIUM 02/13/2020 12:00:00 AM EDT tablet 90 TAKE ONE TABLET BY MOUTH DORENE LY TAKE ONE TABLET BY MOUTH DAILY SOLD: 05/27/2020 [facility] Rosuvastatin calcium 10 MG Oral Tablet [Crestor] Crestor 10 MG Crestor 10 MG 02/13/2020 12:00:00 AM EDT 1.0 {tablet} active Crestor 10 MG eCW1 ([facility]) valacyclovir 1000 MG Oral Tablet VALACYCLOVIR HCL 02/13/2020 12: 00:00 AM EDT tablet 12 TAKE TWO TABLETS BY MOUTH TWO TI MES A DAY FOR ONE DAY NEEDED TAKE TWO TABLETS BY MOUTH TWO TIMES A DAY FOR ONE DAY NEEDED SOLD: 02/13/2020 [facility] valacyclovir 1000 MG Oral Tablet [Valtrex] Valtrex 1 GM Valt jose ramon 1 GM 02/13/2020 12:00:00 AM EDT 2.0 {tablet} active Va ltrex 1 GM eCW1 ([facility]) Rosuvastatin calcium 10 MG Oral Tablet [Crestor] Crestor 10 MG Crestor 10 MG 02/13/2020 12:00:00 AM EDT 1.0 {tablet} active Crestor 10 MG eCW1 ([facility]) 1,250 mcg (50,000 unit) 02/13/2020 12:00:00 AM EDT capsule 12 TAKE ONE CAPSULE BY MOUTH WEEKLY TAKE ONE CAPSULE BY MOUTH WEEKLY SOLD: 02/13/2020 [facility] meloxicam 15 MG Oral Tablet Meloxicam 15 MG Meloxicam 15 MG 11/01/2019 12:00:00 AM EDT 1.0 {tablet} active Meloxicam 1 5 MG eCW1 ([facility]) Famotidine 20 MG Oral Tablet FAMOTIDINE 10/05/2019 12:00:00 AM EDT tab let 180 TAKE ONE TABLET BY MOUTH TWICE A DAY TAKE ONE TABLET BY MOUTH TWICE A DAY SOLD: 02/23/2020 [facility] Famotidine 20 MG Oral Tablet [Pepcid] Pepcid 20 MG Pepcid 20 MG 10/05/2019 12:00:00 AM EDT active Pepcid 2 0 MG eCW1 ([facility]) Famotidine 20 MG Oral Tablet [Pepcid] Pepcid 20 MG Pepcid 20 MG 10/05/2019 12:00:00 AM EDT active Pepcid 2 0 MG eCW1 ([facility]) Famotidine 20 MG Oral Tablet FAMOTIDINE 10/05/2019 [...] EDT active Tessalon Perles 100 MG eCW1 ([facility]) Amoxicillin 875 MG / Clavulanate 125 MG Oral Tablet Amoxicillin-Pot Clavulanate 875-125 MG Amoxicillin-Pot Clavulanate 875-125 MG 07/27/2019 12:00:00 AM ED T active 1 tablet eCW1 ([facility]) benzonatate 100 MG Oral Capsule [Tessalon Perles] Skyla olga Perles 100 MG Tessalon Perles 100 MG 07/27/2019 12:00:00 AM EDT active Tessalon Perles 100 MG eCW1 ([facility]) benzonatate 100 MG Oral Capsule [Tessalon Perles] Skyla olga Perles 100 MG Tessalon Perles 100 MG 07/27/2019 12:00:00 AM EDT active Tessalon Perles 100 MG eCW1 ([facility]) benzonatate 100 MG Oral Capsule [Tessalon Perles] Skyla olga Perles 100 MG Tessalon Perles 100 MG 07/27/2019 12:00:00 AM EDT active Tessalon Perles 100 MG eCW1 ([facility]) benzonatate 100 MG Oral Capsule [Tessalon Perles] Skyla olga Perles 100 MG Tessalon Perles 100 MG 07/27/2019 12:00:00 AM EDT active Tessalon Perles 100 MG eCW1 ([facility]) benzonatate 100 MG Oral Capsule [Tessalon Perles] Skyla olga Perles 100 MG Tessalon Perles 100 MG 07/27/2019 12:00:00 AM EDT active 1-2 capsule as needed eCW1 ([facility]) 20 mg 06/29/2019 12:00:00 AM EST tablet [...] DAY IN THE EVENING SOLD : 05/24/2019 [facility] Insurance Providers Payer name Policy type / Coverage type Policy ID Covered green party ID Covered green party's relationship to aplm Policy Palm Plan Information BCBS EMPIRE ENDY DIV [id number] [facility] [id number] [id number] BC[employer] EMPIRE ENDY DIV [id number] [employer] [id number] [id number] [facility] [id number] SPO [id number] [employer]BS E[employer]IRE [id number] SPO [id number] [facility] [id number] SPO [id number] [facility] [id number] SPO [id number] [employer]BS E[employer]IRE [id number] SPO [id number] BCBS E[employer]IRE [id number] SPO [id number] [facility] [id number] SPO [id number] BCBS EMPIRE [id number] SPO [id number] ANSI-Commercial [id number] ANSI-Commercial [id number] ANSI-Commercial [id number] [facility] [employer] Commercial [id number] Family Depend ent [id number] [facility] [id number] 2 [id number] ANSI-Commercial [id number] [employer] [id number] Family Depend ent [id number] EMPIRE (STATE EMP) O [id number] P [id number] [employer] [id number] Family Depend ent [id number] [employer] Plan F [id number] SPOUSE [id number] [employer] [id number] Family Depend ent [id number] [employer] [id number] Family Depend ent [id number] [employer] Commercial [id number] Family Depend ent [id number] [employer] [id number] Family Depend ent [id number] [employer] Family Depende nt UNITED HEALTHCARE COMM [id number] SPO [id number] [place] Plan F [id number] SPOUSE [id number] EMPIRE (STATE EMP) O [id number] P [id number] EMPIRE ([facility]) O UNAVAILABLE P UNAVAILABLE [id number] Problems, Conditions, and Diagnoses Code Display Name Description Problem Type Effective Dates Data Source(s) J32.9 [id number] Sinusitis, unspecified chronicity, unspec ified location Problem 07/27/2019 12:00:00 AM EDT eCW1 ([facility]) J32.9 [id number] Sinusitis, unspecified chronicity, unspec ified location Problem 07/27/2019 12:00:00 AM EDT [facility] ([facility]) Z23 Encounter for immunization Encounter for immunization Diagnosis 05/25/2020 10:46:00 AM [facility] R59.9 Enlarged lymph nodes, unspecified ENLARGED LYMPH NODES, UNSPECIFIED Diagnosis 01/04/2020 03:00:00 PM EDT [facility] R22.32 Localized swelling, mass and lump, left upper limb LOCALIZED SWELLING, MASS AND LUMP, LEFT UPPER LIMB Diagnosis 01/04/2020 03:00:00 PM EDT [facility] Z12.31 Encounter for screening mammogram for ma lignant neoplasm of breast ENCNTR SCREEN MAMMOGRAM FOR MALIGNANT NEOPLASM OF BREAST Diagnosis 11/2019 03:00:00 PM [facility] Y92.[address] or not applicable UNSPECIFIED PLACE OR NOT APPLICABLE Diagnosis 04/12/2019 02:48:00 PM [facility] Y99.8 Other external cause status OTHER EXTERNAL CAUSE STATU S Diagnosis 04/12/2019 02:48:00 PM [facility] Y93.9 Activity, unspecified ACTIVITY, UNSPECIFIED Diagnosis 04/12/2019 02:48:00 PM [facility] R55 Syncope and collapse SYNCOPE AND COLLAPSE Diagnosis 04/12/2019 02:48:00 PM [facility] T50.995A Adverse effect of other drug s, medicaments and biological substances, initial encounter ADVERSE EFFECT OF DRUG/MEDS/BIOL SUBST, INIT Diagnosis 04/12/2019 02:48:00 PM [facility] R42 Dizziness and giddiness DIZZINESS AND GIDDINESS Diagno sis 04/12/2019 02:48:00 PM [facility] Results ID Date Data Source [id number] 04/30/2020 12:00:00 AM EST [facility] Name Value Range Interpretation Code Description Data Sylvie rce(s) Supporting Document(s) SARS-CoV2 Rapid Antigen [facility] This lab was ordered by [facility] and reported by [facility]. ID Date Data Source [id number] 01/04/2020 04:11:00 PM EDT [facility] DATE OF EXAMINATION: 01/04/2020 14:49 EDT EXTREMITY [...] rce(s) Supporting Document(s) ID Date Data Source [id number] 05/10/2019 11:05:00 AM EST [facility] DATE OF EXAMINATION: 05/09/2019 15:05 EST [...] analyzed through the latest version of the [facility] system. The patient states that [...] rce(s) Supporting Document(s) ID Date Data Source [id number] 04/24/2019 03:02:00 PM EST [facility] Patient: HOLLY DRUMMOND Rebecca Estrada R eport - Physicians/Mid Levels [place] [facility].VisitID: [id number] [place] [address] [phone], FRegistration Date/Time: 04/12/2019 14:01 Weight:108.8 kg (S). Height/Length:65 [...] Value Range Interpretation Code Description Data [facility] rce(s) Supporting Document(s) ID Date Data Source [id number] 04/12/2019 03:13:00 PM EST [facility] [...] Value Range Interpretation Code Description Data [facility] rce(s) Supporting Document(s) ID Date Data Source [id number] 04/12/2019 03:02:00 PM EST [facility] TSYSORDER [id number] Name Value Range Interpretation Code Description Data [facility] Supporting Document(s) GLUCOSE 114 mg/dL 74-106 H [facility] BLOOD UREA NITROGEN 11 mg/dL 7-18 [facility] ital CREATININE 0.7 mg/dL 0.6-1.0 [facility] SODIUM 137 mmol/L 136-145 [facility] POTASSIUM 3.9 mmol/L 3.5-5.1 [facility] CHLORIDE 98 mmol/L 98-107 [facility] CO2 27 mmol/L 21-32 [facility] CALCIUM 8.5 mg/dL 8.5-10.1 [facility] ANION GAP 12.0 mmol/L 5-12 [facility] GLOMERULAR FILTRATION RATE 89 mL/min [facility] GFR IS CALCULATED IN mL/min/1.73m2 PETEY L FUNCTION: >90MILDLY DECREASED: 60-89MILDY TO MODERATELY DECREASED: 45-59 MODERATELY TO SEVERELY DECREASED: 30-44SEVERELY DECREASED: 15-29RENAL FAILURE: <15 AST 17 U/L 15-37 [facility] ALT 26 U/L 12-78 [facility] ALKALINE PHOSPHATASE 57 U/L 46-116 [facility] TOTAL BILIRUBIN 0.3 mg/dL 0.2-1.0 [facility] TOTAL PROTEIN 7.6 g/dl 6.4-8.2 [facility] ALBUMIN 3.7 gm/dL 3.4-5.0 [facility] ID Date Data Source [id number] 04/12/2019 02:51:00 PM EST [facility] TSYSORDER [id number] Name Value Range Interpretation Code Description Data Sylvie rce(s) Supporting Document(s) WHITE BLOOD COUNT 8.6 K/mm3 4.0-10.0 [facility] RED [facility]LOOD COUNT 4.64 M/mm3 4.00-5.50 [facility] HEMOGLOBIN 13.5 gm/dL 12.0-16.0 [facility] HEMATOCRIT 40.2 % 36.0-48.8 [facility] MEAN CELL VOLUME 86.6 fl 80-96 [facility] [facility] MEAN CORPUSCULAR HEMOGLOBIN 29.1 pg 27.0-31.0 [facility] MEAN CORPUSCULAR HGB CONC 33.6 g/dl 32.0-36.0 [facility] RED CELL DISTRIBUTION WIDTH 13.6 % 10.0-14.5 [facility] PLATELET COUNT 243 K/mm3 172-450 [facility] MEAN PLATELET VOLUME 9.6 fl 9.0-13.0 [facility] GRAN % 92.2 % 50-80.0 H [facility] IG% 0.2 % 0.0-0.2 [facility] LYMPH % 5.2 % 25.0-50.0 L [facility] MONO % 2.1 % 2.0-10.0 [facility] EOS % 0.2 % 0-5.0 [facility] BASO % 0.1 % 0.0-2.0 [facility] GRAN # 8.0 K/mm3 2.0-8.00 [facility] IG# 0.0 K/mm3 0.0-0.2 [facility] LYMPH # 0.5 K/mm3 1.0-5.0 L [facility] MONO # 0.2 K/mm3 0.10-1.20 [facility] EOS # 0.0 K/mm3 0.0-0.5 [facility] BASO # 0.0 K/mm3 0.0-0.2 [facility] Procedure Social History Code Duration Value Status Description Data Source(s ) Smoking 02/13/2020 12:00:00 AM EDT Never Smoker completed Never S moker eCW1 ([facility]) Smoking 02/13/2020 12:00:00 AM EDT Never Smoker completed Never S moker eCW1 ([facility]) Smoking 02/13/2020 12:00:00 AM EDT Never Smoker completed Never S moker eCW1 ([facility]) Smoking 11/01/2019 12:00:00 AM EDT Never Smoker completed Never S moker eCW1 ([facility]) Smoking 10/05/2019 12:00:00 AM EDT Never Smoker completed Never S moker eCW1 ([facility]) Vital Signs ID Date Data Source UNK Name Value Range Interpretation Code Description Data Source(s) Diastolic blood pressure 89 mm[Hg] 89 mm[Hg] eCW1 ([facility]) Systolic blood pressure 143 mm[Hg] 143 mm[Hg] e CW1 ([facility]) Body temperature [degF] eCW1 ([facility]) Respiratory rate 16 /min 16 /min eCW1 ([facility]) Heart rate 84 /min 84 /min eCW1 ([facility]) Body mass index (BMI) [Ratio] 40.19 kg/m2 40.19 kg/m2 W1 ([facility]) Body height [in_i] eCW1 ([facility]) Body weight 249 [lb_av] 249 [lb_av] eCW1 ([facility]) Diastolic blood pressure 69 mm[Hg] 69 mm[Hg] eCW1 ([facility]) Systolic blood pressure 115 mm[Hg] 115 mm[Hg] e CW1 ([facility]) Body temperature 99.0 [degF] 99.0 [degF] eCW1 ( [facility]) Respiratory rate 20 /min 20 /min eCW1 ([facility]) Heart rate 105 /min 105 /min eCW1 ([facility]) Body mass index (BMI) [Ratio] 39.22 kg/m2 39.22 kg/m2 eCW1 ([facility]) Body height [in_i] eCW1 ([facility]) Body weight 243 [lb_av] 243 [lb_av] eCW1 ([facility]) Diastolic blood pressure 85 mm[Hg] 85 mm[Hg] eCW1 ([facility]) Systolic blood pressure 128 mm[Hg] 128 mm[Hg] e CW1 ([facility]) Body temperature 98.9 [degF] 98.9 [degF] eCW1 ( [facility]) Respiratory rate 20 /min 20 /min eCW1 ([facility]) Heart rate 90 /min 90 /min eCW1 ([facility]) Body mass index (BMI) [Ratio] 39.06 kg/m2 39.06 kg/m2 W1 ([facility]) Body height [in_i] eCW1 ([facility]) Body weight 242 [lb_av] 242 [lb_av] eCW1 ([facility]) Diastolic blood pressure 94 mm[Hg] 94 mm[Hg] eCW1 ([facility]) Systolic blood pressure 146 mm[Hg] 146 mm[Hg] e CW1 ([facility]) Body temperature 98.9 [degF] 98.9 [degF] eCW1 ( [facility]) Respiratory rate 20 /min 20 /min eCW1 ([facility]) Heart rate 101 /min 101 /min eCW1 ([facility]) Body mass index (BMI) [Ratio] 39.22 kg/m2 39.22 kg/m2 eCW1 ([facility]) Body height [in_us] eCW1 ([facility]) Body weight Measured 243 [lb_av] 243 [lb_av] eC W1 ([facility]) Diastolic blood pressure 101 mm[Hg] 101 mm[Hg] eCW1 ([facility]) Systolic blood pressure 160 mm[Hg] 160 mm[Hg] e CW1 ([facility]) Body temperature 98.6 [degF] 98.6 [degF] eCW1 ( [facility]) Respiratory rate 20 /min 20 /min eCW1 ([facility]) Heart rate 86 /min 86 /min eCW1 ([facility]) Body mass index (BMI) [Ratio] 39.22 kg/m2 39.22 kg/m2 eCW1 ([facility]) Body height [in_us] eCW1 ([facility]) Body weight Measured 243 [lb_av] 243 [lb_av] eC W1 ([facility]) Patient Treatment Plan of Care Planned Activity Planned Date Details Description Data Source (s) Rosuvastatin calcium 10 MG Oral Tablet [Crestor] 02/13/2020 12:00:0 0 AM EDT eCW1 ([facility]) valacyclovir 1000 MG Oral Tablet [Valtrex] 02/13/2020 12:00:00 AM E DT eCW1 ([facility]) Rosuvastatin calcium 10 MG Oral Tablet [Crestor] 02/13/2020 12:00:0 0 AM EDT eCW1 ([facility]) valacyclovir 1000 MG Oral Tablet [Valtrex] 02/13/2020 12:00:00 AM E DT eCW1 ([facility]) Rosuvastatin calcium 10 MG Oral Tablet [Crestor] 02/13/2020 12:00:0 0 AM EDT eCW1 ([facility]) valacyclovir 1000 MG Oral Tablet [Valtrex] 02/13/2020 12:00:00 AM E DT eCW1 ([facility]) meloxicam 15 MG Oral Tablet 11/01/2019 12:00:00 AM EDT eCW1 ([facility]) Famotidine 20 MG Oral Tablet [Pepcid] 10/05/2019 12:00:00 AM EDT eCW1 ([facility]) Famotidine 20 MG Oral Tablet [Pepcid] 10/05/2019 12:00:00 AM EDT eCW1 ([facility]) benzonatate 100 MG Oral Capsule [Tessalon Perles] 07/27/2019 12: 00:00 AM EDT eCW1 ([facility]) benzonatate 100 MG Oral Capsule [Tessalon Perles] 07/27/2019 12: 00:00 AM EDT eCW1 ([facility]) benzonatate 100 MG Oral Capsule [Tessalon Perles] 07/27/2019 12: 00:00 AM EDT eCW1 ([facility]) benzonatate 100 MG Oral Capsule [Tessalon Perles] 07/27/2019 12: 00:00 AM EDT eCW1 ([facility]) benzonatate 100 MG Oral Capsule [Tessalon Perles] 07/27/2019 12: 00:00 AM EDT eCW1 ([facility]) Amoxicillin 875 MG / Clavulanate 125 MG Oral Tablet 07/27/19 12:00:00 AM EDT eCW1 ([facility]) benzonatate 100 MG Oral Capsule [Tessalon Perles] 07/27/2019 12: 00:00 AM EDT eCW1 ([facility])
[2020-05-30 13:13] LABS: INR 0.93; PROTHROMBIN TIME 12.7 SECONDS (12.5-14.3)
[2020-05-30 13:14] LABS: PARTIAL THROMBOPLASTIN TIME 25.9 SECONDS (24.2-38.5)
[2020-05-30 13:16] LABS: D-DIMER QUANT 292.51 ng/ml (<500)
[2020-05-30 14:59] LABS: CK-MB VALUE MASS < 1.0 NG/ML (<3.6); CPK CREATINE PHOSPHOKINASE 64 U/L (26-192); MB/CK RELATIVE INDEX 1.56 (< OR =4); TROPONIN I < 0.02 NG/ML (< 0.10)
[2020-05-30] MEDS ORDERED: NS 500 ML IV ONE (15:30)
[2020-05-30] MEDS ORDERED: SUCR1TA PO (15:52)
[2020-05-30] MEDS ORDERED: holter monitor (15:52)
[2020-05-30 16:16] VITALS: BP 158/78
--- NOTE | 2020-05-30 20:36 | ECGEPIP ---
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
--- NOTE | 2020-05-30 20:43 | ECGEPIP ---
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
== END 2020-05-30 16:18 | disposition home or self-care (01) ==
LOC: M ED 11:22
DX: R07.89 Other chest pain (principal); R00.2 Palpitations; I10 Essential (primary) hypertension; E78.5 Hyperlipidemia, unspecified; F33.9 Major depressive disorder, recurrent, unspecified; F41.9 Anxiety disorder, unspecified; K21.9 Gastro-esophageal reflux disease without esophagitis; E66.9 Obesity, unspecified; Z79.899 Other long term (current) drug therapy

== ENCOUNTER → 2020-06-03 | Outpatient (CLI) | payer BC, OTHER ==
[~2020-06-03] MED LIST changes: +SUCR1TA PO; +VITA100T59 PO; +holter monitor
--- NOTE | 2020-06-05 17:20 | HOLTMON ---
[facility] Test Date: 2020-06-03 Pat Name: HOLLY KAT Department: Room: - Gender: Female Giving Officer: CNONER MARTINEZ : 1970 Requested By: RAFAT Cheng Order Number: [id number] Reading MD: Rafat Navarro Interpretive Statements Recording time 23 hours 44 minutes. Average heart rate 87 bpm, minimum heart rate 66 bpm, maximum heart rate 124 bpm. No atrial fibrillation detected. No supraventricular ectopy. 2 isolated PVCs. No ventricular tachycardia. No episodes of progressive or high-grade AV block or asystole. Normal Holter monitor recording. 06/03/2020 4:41 PM, chest cramp, sinus rhythm 100 bpm. 06/03/2020 8:24 PM, [id number], sinus rhythm 85 bpm. 06/03/2020 10:22 PM, Front chest pain, sinus rhythm 76 bpm. 06/04/2020 7:54 AM, palpitations, sinus tachycardia 105 bpm. 06/04/2020 9:23 AM, anxious, left shoulder pain (ache), sinus tachycardia 102 bpm. 06/04/2020 11:51 AM, chest pressure, sinus rhythm, 87 bpm. 06/04/2020 12:32 PM, palpitations, sinus tachycardia, 108 bpm. 06/04/2020 12:42 PM, chest tightness, sinus tachycardia, 107 bpm. 06/04/2020 1:14 AM, left chest pain, palpitations, sinus rhythm, 73 bpm. Electronically Signed on 06-05-2020 17:20:35 EST by Rafat Navarro
== END ==
LOC: M EKG 16:01
PROVIDERS: ATTEND Internal Medicine
DX: R00.2 Palpitations (principal)

== ENCOUNTER → 2020-06-04 | Outpatient (CLI) | payer OTHER | LOC: M WHC 17:04 | PROVIDERS: ATTEND Obstetrics & Gynecology | DX: Z53.9 Procedure and treatment not carried out, unspecified reason (principal); D25.9 Leiomyoma of uterus, unspecified ==

== ENCOUNTER → 2020-06-05 | Outpatient (REF) | payer OTHER ==
[2020-06-05 17:29] LABS: FREE T4 1.03 NG/DL (0.76-1.46); THYROID STIMULATING HORMONE 1.27 uIU/ML (0.358-3.740)
== END ==
LOC: M PLALAB 14:56
PROVIDERS: ATTEND Obstetrics & Gynecology
DX: N92.0 Excessive and frequent menstruation with regular cycle (principal)

== ENCOUNTER → 2020-06-21 | Outpatient (REF) | payer OTHER | LOC: M PLALAB 10:34 | PROVIDERS: ATTEND Obstetrics & Gynecology | DX: D25.9 Leiomyoma of uterus, unspecified (principal) ==

== ENCOUNTER → 2020-06-27 | Outpatient (CLI) | payer BC, OTHER ==
--- NOTE | 2020-06-27 16:44 | REP ---
INDICATION: FIBROID UTERUS. COMPARISON: None. TECHNIQUE: Transabdominal and transvaginal scanning performed. FINDINGS: Uterine dimensions are 12.6 x 6.8 x 6.5 cm. Endometrial echo is 10 mm in AP dimension and centrally placed. There may be an ill-defined fundal fibroid present, 3.1 x 2.7 x 3.3 cm. The study is limited due to patient body habitus and enlarged uterus. Nabothian cysts are seen in the region of the cervix. The bladder measures 4.9 x 3.6 cm.. The right ovary is not visualized. The left ovary dimensions are 2.4 x 2.7 x 2.5 cm. Blood flow is seen in the left ovary with duplex Doppler evaluation. There is no adnexal mass identified. No free fluid is seen in the cul-de-sac. IMPRESSION: Enlarged fibroid uterus. Right ovary could not be visualized. Left ovary is normal. No gross adnexal mass or free fluid. <Electronically signed by Alexi Landa > 06/27/20 [id number]
== END ==
LOC: M WHC 15:19
PROVIDERS: ATTEND Obstetrics & Gynecology
DX: D25.9 Leiomyoma of uterus, unspecified (principal)

== ENCOUNTER → 2020-07-11 | Outpatient (CLI) | payer BC, OTHER ==
--- NOTE | 2020-07-11 08:46 | REP ---
INDICATION: GALLSTONES COMPARISON: None. TECHNIQUE: Real time louise scale ultrasound examination using curved array transducer. FINDINGS: Liver is mildly echogenic suggesting fatty infiltration without focal hepatic lesion. No intrahepatic biliary dilatation is appreciated. Pancreas is incompletely evaluated due to interposed bowel gas. The gallbladder demonstrates multiple mobile gallstones without wall thickening or pericholecystic fluid. No biliary ductal dilatation is appreciated and the common bile duct measures 4.1 mm diameter. Right kidney is normal in reniform shape without hydronephrosis and measures 12.3 x 4.9 x 4.8 cm. No ascites in the visualized right upper quadrant. IMPRESSION: 1. Hepatosteatosis. 2. Cholelithiasis. <Electronically signed by Cezar Gallegos > 07/11/20 [id number]
--- NOTE | 2020-07-11 10:16 | REP ---
INDICATION: GALLSTONES- U/S SCHEDULE WELL. COMPARISON: None. TECHNIQUE/RADIOTRACER AND DOSE: 6.6 mCi of Technetium-99m mebrofenin was injected and sequential anterior images are acquired. 65 minutes after the mebrofenin injection, the patient consumed 8 ounces Ensure and an additional 60 minutes of imaging was acquired. Regions of interest are plotted around the gallbladder. FINDINGS: The initial hepatocellular parenchymal uptake phase is normal and homogeneous. Intra- and extra-hepatic bile ducts are labeled by the 10-minute image. The gallbladder is first labeled on the 15-minute image. There is normal washout from the liver parenchyma into the gallbladder and small intestine on subsequent images. The gallbladder ejection fraction is 43%. Values greater than 35% are considered normal with this technique. IMPRESSION: Normal hepatobiliary scan and normal gallbladder ejection fraction. <Electronically signed by Enrico Brannon > 07/11/20 [id number]
== END ==
LOC: M RAD 07:14
PROVIDERS: ATTEND Nurse Practitioner Family
DX: K80.20 Calculus of gallbladder without cholecystitis without obstruction (principal)

== ENCOUNTER → 2021-09-26 | Outpatient (REF) | payer OTHER ==
[~2021-09-26] MED LIST changes: +ERGO500029; +LOSA50TA28; -LOSA50TA88; -VITA50005
[2021-09-26 12:56] LABS: BASO % 0.5 % (0.0-1.0); EOS # 0.1 10^3/uL (0.0-0.5); EOS % 1.7 % (0.0-3.0); HEMATOCRIT 38.8 % (36.0-47.0); HEMOGLOBIN 12.6 g/dl (12.0-15.5); LYMPH # 2.3 10^3/uL (1.5-5.0); MEAN CORPUSCULAR HEMOGLOBIN 29.5 pg (27.0-33.0); MEAN CORPUSCULAR HGB CONC 32.5 g/dl (32.0-36.5); MEAN CORPUSCULAR VOLUME 90.9 fl (80.0-96.0); MONO # 0.5 10^3/uL (0.0-0.8); MONO % 5.9 % (2.0-8.0); NEUTROPHILS # 5.3 10^3/uL (1.5-8.5); NEUTROPHILS % 63.5 % (36.0-66.0); PLATELET COUNT, AUTOMATED 304 10^3/uL (150-450); RED BLOOD COUNT 4.27 10^6/uL (4.00-5.40); WHITE BLOOD COUNT 8.3 10^3/uL (4.0-10.0)
[2021-09-26 12:59] LABS: ALBUMIN 3.5 GM/DL (3.2-5.2); ALT/SGPT 20 U/L (12-78); BILIRUBIN,TOTAL 0.3 MG/DL (0.2-1.0); BLOOD UREA NITROGEN 10 MG/DL (7-18); CALCIUM LEVEL 9.3 MG/DL (8.5-10.1); CARBON DIOXIDE LEVEL 29 MEQ/L (21-32); CHLORIDE LEVEL 105 MEQ/L (98-107); CHOLESTEROL LEVEL 160 MG/DL (<200); CHOLESTEROL RISK RATIO 4.705 (<5); CREATININE FOR GFR 0.59 MG/DL (0.55-1.30); FREE T4 0.82 NG/DL (0.76-1.46); GLOMERULAR FILTRATION RATE > 60.0 (>51); GLUCOSE, FASTING 90 MG/DL (70-100); HDL CHOLESTEROL 34 MG/DL (>40); LDL CHOLESTEROL 81 MG/DL (<100); NON-HDL-C 126 MG/DL; POTASSIUM SERUM 4.6 MEQ/L (3.5-5.1); SODIUM LEVEL 139 MEQ/L (136-145); TOTAL PROTEIN 7.1 GM/DL (6.4-8.2); TRIGLYCERIDES LEVEL 223 MG/DL (<150)
== END ==
LOC: M SFHCCLAY 08:56
PROVIDERS: ATTEND Nurse Practitioner Family
DX: K21.9 Gastro-esophageal reflux disease without esophagitis (principal); I10 Essential (primary) hypertension; F41.9 Anxiety disorder, unspecified

== ENCOUNTER → 2022-06-24 | Outpatient (CLI) | payer BC, OTHER ==
[~2022-06-24] MED LIST changes: -CITA20TA7; +CITA20TA7 PO; -ERGO500029; +ERGO500029 PO; -FAMO20TA5; +FAMO20TA5 PO; -LOSA50TA28; +LOSA50TA28 PO; -ROSU10TA6; +ROSU10TA6 PO; +VITA-243 PO
== END ==
LOC: M LABSMTC 11:41
PROVIDERS: ATTEND Anesthesiology
DX: Z01.812 Encounter for preprocedural laboratory examination (principal); Z11.52 Encounter for screening for COVID-19

== ENCOUNTER → 2022-06-24 | Outpatient (CLI) | payer BC, OTHER | LOC: M EKG 16:09 | PROVIDERS: ATTEND Anesthesiology | DX: Z01.810 Encounter for preprocedural cardiovascular examination (principal); R00.0 Tachycardia, unspecified ==

== ENCOUNTER 2022-06-29 08:11 | Day surgery (SDC) | payer BC, OTHER ==
[2022-06-29] VITALS (7 sets, daily range): BP systolic 150–170; BP diastolic 74–99
[~2022-06-29] VITALS: Ht 167.6 cm; Wt 111.6 kg
[~2022-06-29 08:11] MED LIST changes: +ceFAZolin SOD 2 GM in IV 1 EA IV ONE
[2022-06-29] MEDS ORDERED: ROCURONIUM BROMIDE 50MG/5ML VIAL As Ordered ONE ×2 (08:27→11:06)
[2022-06-29] MEDS ORDERED: LIDOCAINE 2% 100MG/5ML SDV (FOR ANES.) As Ordered ONE (08:27)
[2022-06-29] MEDS ORDERED: SUGAMMADEX SODIUM 500 MG/5 ML VIAL (BRIDION) As Ordered ONE (08:27)
[2022-06-29] MEDS ORDERED: propofoL 200 MG/20 ML VIAL As Ordered ONE (08:27)
[2022-06-29] MEDS ORDERED: ONDANSETRON 4MG 2ML VIAL As Ordered ONE (08:28)
[2022-06-29] MEDS ORDERED: MIDAZOLAM INJ 2MG/2ML VIAL As Ordered ONE (08:46)
[2022-06-29] MEDS ORDERED: fentaNYL 250 MCG/5 ML INJECTION As Ordered ONE (08:46)
[2022-06-29 08:48] LABS: HEMOGLOBIN 12.6 g/dl (12.0-15.5); MEAN CORPUSCULAR HGB CONC 32.3 g/dl (32.0-36.5); MEAN CORPUSCULAR VOLUME 89.9 fl (80.0-96.0); PLATELET COUNT, AUTOMATED 299 10^3/uL (150-450); RED BLOOD COUNT 4.34 10^6/uL (4.00-5.40); WHITE BLOOD COUNT 9.1 10^3/uL (4.0-10.0)
[2022-06-29] MEDS ORDERED: BUPIVACAINE HCL 0.25% 10ML VIAL As Ordered ONE (09:54)
[2022-06-29] MEDS ORDERED: HYDROmorphone HCL 2MG/ML 1ML VIAL As Ordered ONE (10:31)
[2022-06-29] MEDS ORDERED: ACETAMINOPHEN 1000MG 100ML IV BAG As Ordered ONE (10:41)
[2022-06-29] MEDS ORDERED: KETOROLAC 60MG 2ML VIAL As Ordered ONE (10:49)
[2022-06-29] MEDS ORDERED: ONDANSETRON 4MG 2ML VIAL IV PRN ×2 (13:00)
[2022-06-29] MEDS ORDERED: HYDROMORPHONE HCL 0.5 MG/ 0.5 ML SYRINGE IV PRN (13:00)
[2022-06-29] MEDS ORDERED: METOCLOPRAMIDE INJ 10MG/2ML VIAL IV PRN (13:00)
[2022-06-29] MEDS ORDERED: oxyCODONE 5MG TAB PO PRN (13:00)
[2022-06-29] MEDS ORDERED: LR 1,000 ML IV SCH ×2 (13:00→13:50)
[2022-06-29] MEDS ORDERED: IBUP-1022 PO (13:17)
[2022-06-29] MEDS ORDERED: OXYC1TAB23 PO (13:18)
[2022-06-29] MEDS ORDERED: PERCOCET 5MG/325MG TAB PO PRN (13:50)
[2022-06-29] MEDS ORDERED: LOSARTAN 50MG TABLET PO SCH (17:00)
[2022-06-29] MEDS: KETOROLAC 30 MG/ML 1ML VIAL IV SCH ×2 (17:23→23:06)
[2022-06-30 02:25] VITALS: BP 149/86
[2022-06-30] MEDS: KETOROLAC 30 MG/ML 1ML VIAL IV SCH (05:31)
[2022-06-30 05:34] VITALS: BP 142/92
== END 2022-06-30 09:56 | disposition home or self-care (01) ==
LOC: M SDC 08:11 → M MSPAV 15:35 → M SDC 06-30 09:56
PROVIDERS: ATTEND Specialist
DX: D25.9 Leiomyoma of uterus, unspecified (principal); N80.00 Endometriosis of the uterus, unspecified; N92.0 Excessive and frequent menstruation with regular cycle; I10 Essential (primary) hypertension; E78.00 Pure hypercholesterolemia, unspecified; K21.9 Gastro-esophageal reflux disease without esophagitis; F41.9 Anxiety disorder, unspecified; Z88.4 Allergy status to anesthetic agent; Z88.8 Allergy status to other drugs, medicaments and biological substances; Z79.899 Other long term (current) drug therapy
CPT/HCPCS: 36415; 58573; 81025; 85027; 86850; 86900; 86901; 88307; 96361; 96374; 96376; J0131; J0690; J1100; J1170; J1885; J2250; J2405; J3010; S0020; S2900

== ENCOUNTER → 2022-12-22 | Outpatient (REF) | payer OTHER ==
[~2022-12-22] MED LIST changes: +IBUP-1022 PO; +OXYC1TAB23 PO; -ceFAZolin SOD 2 GM in IV 1 EA IV ONE
[2022-12-22 18:08] LABS: BASO % 0.5 % (0.0-1.0); EOS # 0.1 10^3/uL (0.0-0.5); EOS % 2.4 % (0.0-3.0); HEMATOCRIT 39.1 % (36.0-47.0); HEMOGLOBIN 12.8 g/dl (12.0-15.5); LYMPH % 34.1 % (24.0-44.0); MEAN CORPUSCULAR HEMOGLOBIN 29.9 pg (27.0-33.0); MEAN CORPUSCULAR HGB CONC 32.7 g/dl (32.0-36.5); MEAN CORPUSCULAR VOLUME 91.4 fl (80.0-96.0); MONO # 0.3 10^3/uL (0.0-0.8); MONO % 5.6 % (2.0-8.0); NEUTROPHILS # 3.4 10^3/uL (1.5-8.5); NEUTROPHILS % 56.9 % (36.0-66.0); PLATELET COUNT, AUTOMATED 245 10^3/uL (150-450); RED BLOOD COUNT 4.28 10^6/uL (4.00-5.40); WHITE BLOOD COUNT 5.9 10^3/uL (4.0-10.0)
[2022-12-22 18:38] LABS: ALBUMIN 3.6 G/DL (3.2-5.2); ALKALINE PHOSPHATASE 63 U/L (46-116); ALT/SGPT 39 U/L (7.0-40); AST/SGOT 18 U/L (<34); BILIRUBIN,TOTAL 0.3 MG/DL (0.3-1.2); BLOOD UREA NITROGEN 11 MG/DL (9-23); CALCIUM LEVEL 8.8 MG/DL (8.5-10.1); CARBON DIOXIDE LEVEL 30 MMOL/L (20-31); CHLORIDE LEVEL 101 MMOL/L (98-107); CHOLESTEROL LEVEL 171 MG/DL (<200); CREATININE FOR GFR 0.55 MG/DL (0.55-1.30); FREE T4 0.81 NG/DL (0.89-1.76); GLOMERULAR FILTRATION RATE > 60.0 (>51); GLUCOSE, FASTING 139 MG/DL (60-100); HDL CHOLESTEROL 34.2 MG/DL (>40); NON-HDL-C 136.8 MG/DL; POTASSIUM SERUM 4.6 MMOL/L (3.5-5.1); SODIUM LEVEL 139 MMOL/L (136-145); TOTAL PROTEIN 6.8 G/DL (5.7-8.2); TRIGLYCERIDES LEVEL 294 MG/DL (<150)
== END ==
LOC: M SFHCCLAY 10:46
PROVIDERS: ATTEND Nurse Practitioner Family
DX: I10 Essential (primary) hypertension (principal); E78.5 Hyperlipidemia, unspecified; K21.9 Gastro-esophageal reflux disease without esophagitis; F32.9 Major depressive disorder, single episode, unspecified

== ENCOUNTER → 2023-09-06 | Outpatient (REF) | payer BC ==
[~2023-09-06] MED LIST changes: -ROSU10TA6 PO; +ROSU10TA61 PO
[2023-09-06 12:31] LABS: ALBUMIN 3.6 G/DL (3.2-5.2); ALKALINE PHOSPHATASE 62 U/L (46-116); ALT/SGPT 21 U/L (7.0-40); AST/SGOT 15 U/L (<34); BILIRUBIN,TOTAL 0.3 MG/DL (0.3-1.2); BLOOD UREA NITROGEN 10 MG/DL (9-23); CALCIUM LEVEL 9.2 MG/DL (8.5-10.1); CARBON DIOXIDE LEVEL 31 MMOL/L (20-31); CHLORIDE LEVEL 103 MMOL/L (98-107); CREATININE FOR GFR 0.59 MG/DL (0.55-1.30); GLOMERULAR FILTRATION RATE > 60.0 (>51); GLUCOSE, FASTING 99 MG/DL (60-100); POTASSIUM SERUM 4.5 MMOL/L (3.5-5.1); SODIUM LEVEL 139 MMOL/L (136-145); TOTAL PROTEIN 6.5 G/DL (5.7-8.2)
[2023-09-06 13:13] LABS: HEMOGLOBIN A1c 5.6 % (4.0-6.0)
== END ==
LOC: M SFHCCLAY 07:23
PROVIDERS: ATTEND Nurse Practitioner Family
DX: I10 Essential (primary) hypertension (principal); E11.9 Type 2 diabetes mellitus without complications

== ENCOUNTER → 2024-04-11 | Outpatient (REF) | payer BC ==
[~2024-04-11] MED LIST changes: +METF500T13 PO; +SEMA1PEN2 SQ
[2024-04-11 19:27] LABS: FREE T4 0.93 NG/DL (0.89-1.76)
[2024-04-11 19:28] LABS: THYROID STIMULATING HORMONE 1.592 uIU/ML (0.55-4.78); TOTAL 25(OH) VITAMIN D 45.9 NG/ML (20.0-100.0)
[2024-04-11 19:33] LABS: ALBUMIN 3.9 G/DL (3.2-5.2); ALKALINE PHOSPHATASE 71 U/L (35-104); ALT/SGPT 19 U/L (7.0-40); AST/SGOT 11 U/L (<34); BILIRUBIN,TOTAL 0.4 MG/DL (0.3-1.2); BLOOD UREA NITROGEN 7 MG/DL (9-23); CALCIUM LEVEL 9.8 MG/DL (8.5-10.1); CARBON DIOXIDE LEVEL 28 MMOL/L (20-31); CHLORIDE LEVEL 103 MMOL/L (98-107); CHOLESTEROL LEVEL 175 MG/DL (<200); CHOLESTEROL RISK RATIO 4.82 (<5); CREATININE FOR GFR 0.61 MG/DL (0.55-1.30); GLOMERULAR FILTRATION RATE > 60.0 (>51); GLUCOSE, FASTING 88 MG/DL (60-100); HDL CHOLESTEROL 36.3 MG/DL (>40); LDL CHOLESTEROL 98.1 MG/DL (<100); NON-HDL-C 138.7 MG/DL; POTASSIUM SERUM 5.2 MMOL/L (3.5-5.1); SODIUM LEVEL 140 MMOL/L (136-145); TOTAL PROTEIN 7.2 G/DL (5.7-8.2); TRIGLYCERIDES LEVEL 203 MG/DL (<150)
[2024-04-11 19:45] LABS: HEMOGLOBIN A1c 5.3 % (4.0-6.0)
== END ==
LOC: M SFHCCLAY 10:02
PROVIDERS: ATTEND Nurse Practitioner Family
DX: E11.9 Type 2 diabetes mellitus without complications (principal); I10 Essential (primary) hypertension; E78.5 Hyperlipidemia, unspecified; K21.9 Gastro-esophageal reflux disease without esophagitis; F32.9 Major depressive disorder, single episode, unspecified

== ENCOUNTER 2024-06-27 08:22 | Day surgery (SDC) | payer BC ==
[~2024-06-27] VITALS: Ht 162.6 cm; Wt 98.4 kg
[~2024-06-27 08:22] MED LIST changes: +FAMO1TAB11 PO; +LOSA100T46 PO; +MAG100TA PO; +SEMA2PEN
[2024-06-27] MEDS ORDERED: LIDOCAINE 2% 100MG/5ML SDV (FOR ANES.) As Ordered ONE (09:15)
[2024-06-27] MEDS ORDERED: GLYCOPYRROLATE INJ 0.2 MG/ML 2 ML VIAL As Ordered ONE (09:15)
[2024-06-27] MEDS ORDERED: propofoL 200 MG/20 ML VIAL As Ordered ONE (09:15)
[2024-06-27 10:23] VITALS: BP 131/80; TEMP 97.2; O2SAT 95
== END 2024-06-27 10:35 | disposition home or self-care (01) ==
LOC: M OPP 08:22
PROVIDERS: ATTEND Internal Medicine Gastroenterology
DX: Z12.11 Encounter for screening for malignant neoplasm of colon (principal); Z88.5 Allergy status to narcotic agent; Z88.8 Allergy status to other drugs, medicaments and biological substances; Z79.85 Long-term (current) use of injectable non-insulin antidiabetic drugs; Z79.899 Other long term (current) drug therapy
CPT/HCPCS: 45378; J1596

== ENCOUNTER → 2024-09-07 | Outpatient (REF) | payer BC ==
[2024-09-07 18:47] LABS: BASO % 0.4 % (0.0-1.0); EOS # 0.1 10^3/uL (0.0-0.5); EOS % 1.5 % (0.0-3.0); HEMOGLOBIN 13.7 g/dl (12.0-15.5); LYMPH # 2.3 10^3/uL (1.5-5.0); LYMPH % 33.9 % (24.0-44.0); MEAN CORPUSCULAR HEMOGLOBIN 29.4 pg (27.0-33.0); MEAN CORPUSCULAR HGB CONC 32.6 g/dl (32.0-36.5); MEAN CORPUSCULAR VOLUME 90.1 fl (80.0-96.0); MONO # 0.3 10^3/uL (0.0-0.8); MONO % 4.8 % (2.0-8.0); NEUTROPHILS % 59.1 % (36.0-66.0); PLATELET COUNT, AUTOMATED 294 10^3/uL (150-450); RED BLOOD COUNT 4.66 10^6/uL (4.00-5.40); WHITE BLOOD COUNT 6.7 10^3/uL (4.0-10.0)
[2024-09-07 18:57] LABS: ALKALINE PHOSPHATASE 67 U/L (35-104); ALT/SGPT 30 U/L (7.0-40); AST/SGOT 18 U/L (<34); BILIRUBIN,TOTAL 0.4 MG/DL (0.3-1.2); BLOOD UREA NITROGEN 11 MG/DL (9-23); CALCIUM LEVEL 9.3 MG/DL (8.5-10.1); CARBON DIOXIDE LEVEL 31 MMOL/L (20-31); CHLORIDE LEVEL 102 MMOL/L (98-107); CHOLESTEROL LEVEL 188 MG/DL (<200); CHOLESTEROL RISK RATIO 4.85 (<5); CREATININE FOR GFR 0.59 MG/DL (0.55-1.30); GLOMERULAR FILTRATION RATE > 90.0 (>51); GLUCOSE, FASTING 89 MG/DL (60-100); HDL CHOLESTEROL 38.7 MG/DL (>40); LDL CHOLESTEROL 107.9 MG/DL (<100); MAGNESIUM LEVEL 2.1 MG/DL (1.8-2.4); NON-HDL-C 149.3 MG/DL; POTASSIUM SERUM 4.3 MMOL/L (3.5-5.1); SODIUM LEVEL 142 MMOL/L (136-145); TOTAL PROTEIN 7.3 G/DL (5.7-8.2); TRIGLYCERIDES LEVEL 207 MG/DL (<150)
[2024-09-07 18:58] LABS: FREE T4 0.96 NG/DL (0.89-1.76); THYROID STIMULATING HORMONE 0.901 uIU/ML (0.55-4.78)
[2024-09-07 19:13] LABS: HEMOGLOBIN A1c 5.3 % (4.0-6.0)
== END ==
LOC: M SFHCCLAY 14:08
PROVIDERS: ATTEND Physician Assistant
DX: I10 Essential (primary) hypertension (principal); E78.5 Hyperlipidemia, unspecified; K21.9 Gastro-esophageal reflux disease without esophagitis; F32.9 Major depressive disorder, single episode, unspecified; E11.9 Type 2 diabetes mellitus without complications